=== PATIENT | male | born 1965 | race Caucasian/White ===

== ENCOUNTER 2018-05-30 04:12 | Emergency (ER) | payer MEDICAID ==
--- NOTE | 2018-05-30 04:42 | EDM.PDOC ---
ED HPI GENERAL MEDICAL PROBLEM - General Chief Complaint: Back Pain or Injury Stated Complaint: BACK PAIN Time Seen by Provider: 05/30/18 04:34 - History of Present Illness INITIAL COMMENTS - FREE TEXT/NARRATIVE: HISTORY AND PHYSICAL: History of present illness: Patient's 53-year-old white male presents with a history of chronic back pain. He is followed by primary care states he scheduled for MRI. He denies numbness weakness incontinence or retention bowel or bladder Review of systems: As per history of present illness and below otherwise all systems reviewed and negative. Past medical history: As per history of present illness and as reviewed below otherwise noncontributory. Surgical history: As per history of present illness and as reviewed below otherwise noncontributory. Social history: No reported history of drug or alcohol abuse. Family history: As per history of present illness and as reviewed below otherwise noncontributory. Physical exam: HEENT: Atraumatic, normocephalic, pupils reactive, negative for conjunctival pallor or scleral icterus, mucous membranes moist, throat clear, neck supple, nontender, trachea midline. Lungs: Clear to auscultation, breath sounds equal bilaterally, chest nontender. Heart: S1S2, regular, negative for clicks, rubs, or JVD. Abdomen: Soft, nondistended, nontender. Negative for masses or hepatosplenomegaly. Negative for costovertebral tenderness. Pelvis: Stable nontender. Genitourinary: Deferred. Rectal: Deferred. Extremities: Atraumatic, negative for cords or calf pain. Neurovascular unremarkable. Neuro: Awake, alert, oriented. Cranial nerves II through XII unremarkable. Cerebellum unremarkable. Motor and sensory unremarkable throughout. Exam nonfocal. Back: Patient is paravertebral tenderness at the lumbar spine no vertebral body or point tenderness Diagnostics: Patient declines any diagnostics other than UA Therapeutics: Tramadol 50 mg by mouth Impression: #1 chronic back pain Definitive disposition and diagnosis as appropriate pending reevaluation and review of above. Upper Back Pain Score (Numeric/FACES): 10 - Related Data Allergies Allergy/AdvReac Type Severity Reaction Status Date / Time No Known Allergies Allergy Verified 03/07/18 14:38 Home Meds: Home Meds Ibuprofen 1 tab ASDIRECTED PRN 05/30/18 [History] Lisinopril/Hydrochlorothiazide [Lisinopril-Hctz 20-25 mg Tab] 1 tab DAILY [History] Phentermine HCl 37.5 mg PO DAILY 05/30/18 [History] Tamsulosin HCl [Flomax] 0.4 mg PO DAILY 05/30/18 [History] Past Medical History HEENT History: Reports: None Cardiovascular History: Reports: Hypertension Respiratory History: Reports: None Gastrointestinal History: Reports: None Genitourinary History: Reports: Renal Calculus Musculoskeletal History: Reports: Back Pain, Chronic Other Musculoskeletal History: lumbar spine fracture Neurological History: Reports: None Psychiatric History: Reports: None Endocrine/Metabolic History: Reports: None Hematologic History: Reports: None Immunologic History: Reports: None Oncologic (Cancer) History: Reports: None Dermatologic History: Reports: None - Infectious Disease History Infectious Disease History: Reports: Chicken Pox - Past Surgical History Head Surgeries/Procedures: Reports: None HEENT Surgical History: Reports: Myringotomy w Tube(s) Cardiovascular Surgical History: Reports: None Respiratory Surgical History: Reports: None GI Surgical History: Reports: Hernia, Abdominal Male Surgical History: Reports: None Endocrine Surgical History: Reports: None Neurological Surgical History: Reports: None Musculoskeletal Surgical History: Reports: None Oncologic Surgical History: Reports: None Dermatological Surgical History: Reports: None Social & Family History - Family History Family Medical History: Noncontributory - Tobacco Use Smoking Status *Q: Never Smoker - Caffeine Use Caffeine Use: Reports: Energy Drinks - Recreational Drug Use Recreational Drug Use: No ED ROS GENERAL - Review of Systems Review Of Systems: ROS reveals no pertinent complaints other than HPI. ED EXAM, GENERAL - Physical Exam Exam: See Below (See dictation) Course - Vital Signs Last Recorded V/S: Last Vital Signs Temp 35.6 C 05/30/18 04:25 Pulse 116 H 05/30/18 04:25 Resp 20 05/30/18 04:25 BP 150/101 H 05/30/18 04:25 Pulse Ox 97 05/30/18 04:25 - Orders/Labs/Meds Orders: Active Orders 24 hr Category Date Time Status UA RFX RIN AND CULT IF INDIC [URIN] Stat Lab 05/30/18 04:33 Ordered Departure - Departure Time of Disposition: 04:41 Disposition: Home, Self-Care 01 Condition: Good Clinical Impression: Chronic back pain - Discharge Information Referrals: Isha Moody DO [Primary Care Provider] - Additional Instructions: The following information is given to patients seen in the emergency department who are being discharged to home. This information is to outline your options for follow-up care. We provide all patients seen in our emergency department with a follow-up referral. The need for follow-up, as well as the timing and circumstances, are variable depending upon the specifics of your emergency department visit. If you don't have a primary care physician on staff, we will provide you with a referral. We always advise you to contact your personal physician following an emergency department visit to inform them of the circumstance of the visit and for follow-up with them and/or the need for any referrals to a consulting specialist. The emergency department will also refer you to a specialist when appropriate. This referral assures that you have the opportunity for followup care with a specialist. All of these measure are taken in an effort to provide you with optimal care, which includes your followup. Under all circumstances we always encourage you to contact your private physician who remains a resource for coordinating your care. When calling for followup care, please make the office aware that this follow-up is from your recent emergency room visit. If for any reason you are refused follow-up, please contact the [facility] emergency department at and asked to speak to the emergency department charge nurse. Medrol tramadol as prescribed follow primary medical doctor keep scheduled appointments as discussed return as needed as discussed - My Orders Last 24 Hours: My Active Orders 05/30/18 04:33 UA RFX RIN AND CULT IF INDIC [URIN] Stat - Assessment/Plan Last 24 Hours: My Active Orders 05/30/18 04:33 UA RFX RIN AND CULT IF INDIC [URIN] Stat
[2018-05-30] MEDS ORDERED: traMADol 50 MG Tab PO ONE (04:44)
== END 2018-05-30 05:11 | disposition home or self-care (01) ==
LOC: MW.ED 04:12
DX: M54.9 Dorsalgia, unspecified (principal); G89.29 Other chronic pain; I10 Essential (primary) hypertension; Z79.899 Other long term (current) drug therapy
CPT/HCPCS: 81003; 99283; A9270

== ENCOUNTER 2018-08-25 18:03 | Emergency (ER) | payer BC, MEDICAID, OTHER ==
[2018-08-25] MEDS ORDERED: Sodium Chloride 0.9% 1,000 ML IV ONE (18:30)
[2018-08-25] MEDS ORDERED: Ondansetron 4 MG/2 ML SDV IVPUSH ONE (18:30)
--- NOTE | 2018-08-25 18:33 | EDM.PDOC ---
ED HPI GENERAL MEDICAL PROBLEM - General Chief Complaint: Genitourinary Problem Stated Complaint: POSSIBLE KIDNEY STONES Time Seen by Provider: 08/25/18 18:07 Source of Information: Reports: Patient History Limitations: Reports: No Limitations - History of Present Illness INITIAL COMMENTS - FREE TEXT/NARRATIVE: HISTORY AND PHYSICAL: History of present illness: Patient is a 53-year-old male presents to the ED today with concern of right flank pain x 2 days. Patient states he has a history of kidney stones which had the symptoms sort of pain that he describes today. Patient states the pain is worse when he tries to move and better when he sits still. Patient denies any other symptoms. Patient denies any other health history. Patient denies fever, chills, chest pain, shortness of breath, or cough. Denies headache, neck stiff ness, change in vision, syncope, or near syncope. Denies nausea, vomiting, abdominal pain, diarrhea, constipation, or dysuria. Has not noted any blood in urine or stool. Patient has been eating and drinking appropriately. Review of systems: As per history of present illness and below otherwise all systems reviewed and negative. Past medical history: As per history of present illness and as reviewed below otherwise noncontributory. Surgical history: As per history of present illness and as reviewed below otherwise noncontributory. Social history: See social history for further information Family history: As per history of present illness and as reviewed below otherwise noncontributory. Physical exam: General: Patient is alert, oriented, and in no acute distress. Patient sitting comfortably on exam table. HEENT: Atraumatic, normocephalic, pupils equal and reactive bilaterally, negative for conjunctival pallor or scleral icterus, mucous membranes moist, TMs normal bilaterally, throat clear, neck supple, nontender, trachea midline. No drooling or trismus noted. No meningeal signs. No hot potato voice noted. Lungs: Clear to auscultation, breath sounds equal bilaterally, chest nontender. Heart: S1S2, regular rate and rhythm without overt murmur Abdomen: Obese, Soft, nondistended, nontender. Negative for masses or hepatosplenomegaly. Positive for costovertebral tenderness of the right. Pelvis: Stable nontender. Genitourinary: Deferred. Rectal: Deferred. Skin: Intact, warm, dry. No lesions or rashes noted. Extremities: Atraumatic, negative for cords or calf pain. Neurovascular unremarkable. Neuro: Awake, alert, oriented. Cranial nerves II through XII unremarkable. Cerebellum unremarkable. Motor and sensory unremarkable throughout. Exam nonfocal. Notes: Dr. Blackwell verbally involved in patient care. Dr. Lara, urologist warehouse person, consulted on patient and will see him tomorrow in his office at 1:15pm. Voices understanding and is agreeable to plan of care. Denies any further questions or concerns at this time. Diagnostics: CBC, CMP, UA, EKG, lipase, abdominal pelvic CT Therapeutics: Saline, zofran, Dilauded Prescription: Flomax, [place] #30, Zofran Impression: Distal right ureterolithiasis Plan: 1. Dr. Lara, the urologist, will see you in his office tomorrow at 1:15 PM. Call his office in the morning to read verify this appointment. His number is above provided for you. 2. Take medication as prescribed. You can also alternate ibuprofen and Tylenol as directed for pain and discomfort. 3. Follow-up with the urologist as discussed. Return to the ED as needed and as discussed. Definitive disposition and diagnosis as appropriate pending reevaluation and review of above. right flank Pain Score (Numeric/FACES): 7 - Related Data Allergies Allergy/AdvReac Type Severity Reaction Status Date / Time No Known Allergies Allergy Verified 03/07/18 14:38 Home Meds: Home Meds Ibuprofen 1 tab ASDIRECTED PRN 05/30/18 [History] Lisinopril/Hydrochlorothiazide [Lisinopril-Hctz 20-25 mg Tab] 1 tab DAILY [History] Phentermine HCl 37.5 mg PO DAILY 05/30/18 [History] Tamsulosin HCl [Flomax] 0.4 mg PO DAILY 05/30/18 [History] Past Medical History HEENT History: Reports: None Cardiovascular History: Reports: Hypertension Respiratory History: Reports: None Gastrointestinal History: Reports: None Genitourinary History: Reports: Renal Calculus Musculoskeletal History: Reports: Back Pain, Chronic Other Musculoskeletal History: lumbar spine fracture Neurological History: Reports: None Psychiatric History: Reports: None Endocrine/Metabolic History: Reports: None Hematologic History: Reports: None Immunologic History: Reports: None Oncologic (Cancer) History: Reports: None Dermatologic History: Reports: None - Infectious Disease History Infectious Disease History: Reports: None - Past Surgical History Head Surgeries/Procedures: Reports: None HEENT Surgical History: Reports: Myringotomy w Tube(s) Cardiovascular Surgical History: Reports: None Respiratory Surgical History: Reports: None GI Surgical History: Reports: Hernia, Abdominal Male Surgical History: Reports: None Endocrine Surgical History: Reports: None Neurological Surgical History: Reports: None Musculoskeletal Surgical History: Reports: None Oncologic Surgical History: Reports: None Dermatological Surgical History: Reports: None Social & Family History - Family History Family Medical History: Noncontributory - Tobacco Use Smoking Status *Q: Never Smoker - Caffeine Use Caffeine Use: Reports: Energy Drinks - Recreational Drug Use Recreational Drug Use: No ED ROS GENERAL - Review of Systems Review Of Systems: ROS reveals no pertinent complaints other than HPI. ED EXAM, RENAL/ - Physical Exam Exam: See Below (See dictation) Course - Vital Signs Last Recorded V/S: Last Vital Signs Temp 36.7 C 08/25/18 18:10 Pulse 92 08/25/18 18:10 Resp 18 08/25/18 18:10 BP 177/88 H 08/25/18 18:10 Pulse Ox 99 08/25/18 18:10 - Orders/Labs/Meds Orders: Active Orders 24 hr Category Date Time Status EKG Documentation Completion [RC] STAT Care 08/25/18 18:31 Active HYDROmorphone [Dilaudid] Med 08/25/18 20:02 Once 1 mg IVPUSH ONETIME ONE Medication Orders Hydromorphone HCl (Dilaudid) 1 mg IVPUSH ONETIME ONE Stop: 08/25/18 20:03 Labs: Laboratory Tests 08/25/18 08/25/18 08/25/18 Range/Units 18:45 18:50 18:50 WBC 6.55 (4.0-11.0) K/uL RBC 4.34 L (4.50-5.90) M/uL Hgb 14.0 (13.0-17.0) g/dL Hct 42.0 (38.0-50.0) % MCV 96.8 (80.0-98.0) fL MCH 32.3 H (27.0-32.0) pg MCHC 33.3 (31.0-37.0) g/dL RDW Std Deviation 45.6 (28.0-62.0) fl RDW Coeff of Amandeep 13 (11.0-15.0) % Plt Count 230 (150-400) K/uL MPV 9.20 (7.40-12.00) fL Neut % (Auto) 58.7 (48.0-80.0) % Lymph % (Auto) 28.7 (16.0-40.0) % Bill[place] % (Auto) 8.9 (0.0-15.0) % Eos % (Auto) 3.2 (0.0-7.0) % Baso % (Auto) 0.5 (0.0-1.5) % Neut # (Auto) 3.9 (1.4-5.7) K/uL Lymph # (Auto) 1.9 (0.6-2.4) K/uL Bill[place] # (Auto) 0.6 (0.0-0.8) K/uL Eos # (Auto) 0.2 (0.0-0.7) K/uL Baso # (Auto) 0.0 (0.0-0.1) K/uL Nucleated RBC % 0.0 /100WBC Nucleated RBCs # 0 K/uL Sodium 144 (136-148) mmol/L Potassium 4.1 (3.5-5.1) mmol/L Chloride 107 (98-107) mmol/L Carbon Dioxide 27.4 (21.0-32.0) mmol/L BUN 25 H (7.0-18.0) mg/dL Creatinine 1.1 (0.8-1.3) mg/dL Est Cr Clr Drug Dosing 88.78 mL/min Estimated GFR (MDRD) > 60.0 ml/min Glucose 111 H (74-106) mg/dL Calcium 8.7 (8.5-10.1) mg/dL Total Bilirubin 0.3 (0.2-1.0) mg/dL AST 15 (15-37) IU/L ALT 36 (14-63) IU/L Alkaline Phosphatase 70 (46-116) U/L Total Protein 7.3 (6.4-8.2) g/dL Albumin 4.0 (3.4-5.0) g/dL Globulin 3.3 (2.6-4.0) g/dL Albumin/Globulin Ratio 1.2 (0.9-1.6) Lipase 122 (73-393) U/L Urine Color YELLOW Urine Appearance CLEAR Urine pH 7.0 (5.0-8.0) Ur Specific Maynard 1.020 (1.001-1.035) Urine Protein NEGATIVE (NEGATIVE) mg/dL Urine Glucose (UA) NEGATIVE (NEGATIVE) mg/dL Urine Ketones NEGATIVE (NEGATIVE) mg/dL Urine Occult Blood NEGATIVE (NEGATIVE) Urine Nitrite NEGATIVE (NEGATIVE) Urine Bilirubin NEGATIVE (NEGATIVE) Urine Urobilinogen 0.2 (<2.0) EU/dL Ur Leukocyte Esterase NEGATIVE (NEGATIVE) Meds: Medications Generic Name Dose Route Start Last Admin Trade Name Freq PRN Reason Stop Dose Admin Hydromorphone HCl 1 mg 08/25/18 20:02 Dilaudid IVPUSH 08/25/18 20:03 ONETIME ONE Discontinued Medications Generic Name Dose Route Start Last Admin Trade Name Freq PRN Reason Stop Dose Admin Sodium Chloride 1,000 mls @ 999 mls/hr 08/25/18 18:30 08/25/18 18:55 Normal Saline IV 08/25/18 19:30 999 mls/hr BOLUS ONE Administration Ondansetron HCl 4 mg 08/25/18 18:30 08/25/18 18:56 Zofran IVPUSH 08/25/18 18:31 4 mg ONETIME ONE Administration Departure - Departure Time of Disposition: 20:14 Disposition: Home, Self-Care 01 Clinical Impression: Ureterolithiasis - Discharge Information Referrals: PCP,None [Primary Care Provider] - Forms: ED Department Discharge Additional Instructions: The following information is given to patients seen in the emergency department who are being discharged to home. This information is to outline your options for follow-up care. We provide all patients seen in our emergency department with a follow-up referral. The need for follow-up, as well as the timing and circumstances, are variable depending upon the specifics of your emergency department visit. If you don't have a primary care physician on staff, we will provide you with a referral. We always advise you to contact your personal physician following an emergency department visit to inform them of the circumstance of the visit and for follow-up with them and/or the need for any referrals to a consulting specialist. The emergency department will also refer you to a specialist when appropriate. This referral assures that you have the opportunity for follow-up care with a specialist. All of these measure are taken in an effort to provide you with optimal care, which includes your follow-up. Under all circumstances we always encourage you to contact your private physician who remains a resource for coordinating your care. When calling for follow-up care, please make the office aware that this follow-up is from your recent emergency room visit. If for any reason you are refused follow-up, please contact the [facility] Emergency Department at and asked to speak to the emergency department charge nurse. [facility] [address] [place] [id number] [facility] [address] [place] [id number] [facility] [place] - Urology [address] [place] [id number] Lara, the urologist, will see you in his office tomorrow at 1:15 PM. Call his office in the morning to read verify this appointment. His number is above provided for you. 2. Take medication as prescribed. You can also alternate ibuprofen and Tylenol as directed for pain and discomfort. 3. Follow-up with the urologist as discussed. Return to the ED as needed and as discussed. - My Orders Last 24 Hours: My Active Orders 08/25/18 18:31 EKG Documentation Completion [RC] STAT 08/25/18 20:02 HYDROmorphone [Dilaudid] 1 mg IVPUSH ONETIME ONE - Assessment/Plan Last 24 Hours: My Active Orders 08/25/18 18:31 EKG Documentation Completion [RC] STAT 08/25/18 20:02 HYDROmorphone [Dilaudid] 1 mg IVPUSH ONETIME ONE
[2018-08-25 19:29] LABS: CHLORIDE,CL 107 mmol/L (98-107); SODIUM,NA 144 mmol/L (136-148)
--- NOTE | 2018-08-25 19:54 | CT ---
HISTORY: Right flank pain Noncontrast CT abdomen and pelvis coronal sagittal reformatted images obtained. COMPARISON: CT abdomen and pelvis 03/04/2018. Findings: Heart size is normal. Minimal basilar atelectasis. Spleen pancreas liver gallbladder is unremarkable. Normal caliber abdominal aorta. Normal appendix. Normal caliber abdominal aorta. Normal appendix. There is a right distal ureteral stone measuring 8 mm series 201 image 128. There is no significant ureteral dilatation or hydronephrosis There is no renal calculi. Low-attenuation lesions in the left kidney likely reflect cysts. Subcentimeter left upper pole dense renal lesion too small to characterize. Diverticulosis. The bowel appears unremarkable. Fat containing umbilical hernia. Fat containing right inguinal hernia. Prostate gland is within normal limits. No suspicious bony lesions are seen. IMPRESSION: 1. 8 millimeter right distal ureter stone without significant hydronephrosis or ureteral dilatation. No additional renal calculi. 2. Normal appendix. 3. Diverticulosis. Please note that all CT scans at this facility use dose modulation, iterative reconstruction, and/or weight-based dosing when appropriate to reduce radiation dose to as low as reasonably achievable. Dictated by Marianne Honeycutt MD @ Aug 25 2018 7:27PM Signed by Dr. Marianne Honeycutt @ Aug 25 2018 7:51PM
[2018-08-25] MEDS ORDERED: HYDROmorphone 2 MG/ML Syringe IVPUSH ONE (20:02)
== END 2018-08-25 21:21 | disposition home or self-care (01) ==
LOC: MW.ED 18:03
DX: N20.1 Calculus of ureter (principal); I10 Essential (primary) hypertension; Z79.899 Other long term (current) drug therapy
CPT/HCPCS: 74176; 80053; 81003; 83690; 85025; 93005; 96361; 96374; 96375; 99284; J1170; J2405; J7040

== ENCOUNTER 2018-08-27 06:21 | Day surgery (SDC) | payer BC, OTHER ==
[~2018-08-27 06:21] MED LIST: Lactated Ringers 1,000 ML IV SCH; Sodium Chloride 0.9% 10 ML SDV IV PRN; Sodium Chloride 0.9% 10 ML Syringe FLUSH PRN; Sodium Chloride 0.9% 2.5 ML Syringe FLUSH PRN; ceFAZolin 2 GM in Premix Bag 1 BAG IV ONE
[2018-08-27] MEDS ORDERED: Propofol 200 MG/20 ML SDV ONE (07:23)
[2018-08-27] MEDS ORDERED: Midazolam 1 MG/ML 2 ML SDV ONE (07:23)
[2018-08-27] MEDS ORDERED: Ondansetron 4 MG/2 ML SDV ONE (07:24)
[2018-08-27] MEDS ORDERED: fentaNYL 250 MCG/5 ML SDV ONE (07:24)
--- NOTE | 2018-08-27 07:33 | PCM.PREANE ---
Preanesthetic Assessment - Anesthesia/Transfusion/Family Hx Anesthesia History: Prior Anesthesia Without Reaction Family History of Anesthesia Reaction: No Transfusion History: No Prior Transfusion(s) - Review of Systems General: No Symptoms Pulmonary: No Symptoms Cardiovascular: No Symptoms Gastrointestinal: Abdominal Pain Neurological: No Symptoms Other: Reports: None - Physical Assessment NPO Status Date: 08/26/18 O2 Sat by Pulse Oximetry: 97 Respiratory Rate: 16 Vital Signs: Last Vital Signs Temp 97.7 F 08/27/18 07:04 Pulse 74 08/27/18 07:04 Resp 16 08/27/18 07:04 BP 158/90 H 08/27/18 07:04 Pulse Ox 97 08/27/18 07:04 Height: 6 ft 1 in Weight: 149.232 kg ASA Class: 2 Mental Status: Alert & Oriented x3 Dentition: Reports: Dentures (upper) ROM/Head Extension: Full Lungs: Clear to Auscultation, Normal Respiratory Effort Cardiovascular: Regular Rate, Regular Rhythm - Allergies Allergies/Adverse Reactions: Allergies Allergy/AdvReac Type Severity Reaction Status Date / Time No Known Allergies Allergy Verified 08/26/18 15:37 - Acknowledgements Anesthesia Type Planned: General Anesthesia Pt an Appropriate Candidate for the Planned Anesthesia: Yes Alternatives and Risks of Anesthesia Discussed w Pt/Guardian: Yes Pt/Guardian Understands and Agrees with Anesthesia Plan: Yes Additional Comments: anes prob list: HTN, denies other PMH, has had hernia surg x2 and uln nerve transposition without problem. denies snoring/KRYSTAL PLAN: GET PreAnesthesia Questionnaire HEENT History: Reports: Other (See Below) Other HEENT History: uses reading glasses, has upper partial removable denture Cardiovascular History: Reports: Hypertension Other Cardiovascular History: has been off Lisinopril for 3 weeks Respiratory History: Reports: None Gastrointestinal History: Reports: None Genitourinary History: Reports: Renal Calculus Musculoskeletal History: Reports: Back Pain, Chronic, Fracture Other Musculoskeletal History: hx of fx back Neurological History: Reports: Other (See Below) Other Neuro History: hx of motion sickness Psychiatric History: Reports: PTSD Other Psychiatric History: has taken Adderal in the past Endocrine/Metabolic History: Reports: Obesity/BMI 30+ Hematologic History: Reports: None Immunologic History: Reports: None Oncologic (Cancer) History: Reports: None Dermatologic History: Reports: None - Infectious Disease History Infectious Disease History: Reports: None - Past Surgical History Head Surgeries/Procedures: Reports: None HEENT Surgical History: Reports: Myringotomy w Tube(s) Cardiovascular Surgical History: Reports: None Respiratory Surgical History: Reports: None GI Surgical History: Reports: Hernia, Inguinal Male Surgical History: Reports: None Endocrine Surgical History: Reports: None Neurological Surgical History: Reports: None Musculoskeletal Surgical History: Reports: Other (See Below) Other Musculoskeletal Surgeries/Procedures:: transposition of left ulnar nerve Oncologic Surgical History: Reports: None Dermatological Surgical History: Reports: None - SUBSTANCE USE Smoking Status *Q: Former Smoker Tobacco Use Within Last Twelve Months: No Recreational Drug Use History: No - HOME MEDS Home Medications: Home Meds Ibuprofen 1 tab PO ASDIRECTED PRN 05/30/18 [History] Lisinopril/Hydrochlorothiazide [Lisinopril-Hctz 20-25 mg Tab] 1 tab PO QAM 05/30 [History] - CURRENT (IN HOUSE) MEDS Current Meds: Current Medications Lactated Ringer's (Ringers, Lactated) 1,000 mls @ 100 mls/hr IV ASDIRECTED MILADIS Last Admin: 08/27/18 07:23 Dose: 100 mls/hr Sodium Chloride (Saline Flush) 10 ml FLUSH ASDIRECTED PRN PRN Reason: Keep Vein Open Sodium Chloride (Saline Flush) 2.5 ml FLUSH ASDIRECTED PRN PRN Reason: Keep Vein Open Sodium Chloride (Normal Saline) 10 ml IV ASDIRECTED PRN PRN Reason: IV Use Discontinued Medications Fentanyl (Sublimaze) Confirm Administered Dose 250 mcg .ROUTE .STK-MED ONE Stop: 08/27/18 07:25 Cefazolin Sodium/Dextrose 2 gm (/ Premix) 50 mls @ 100 mls/hr IV ONCALL ONE Stop: 08/27/18 00:30 Lidocaine HCl (Xylocaine-Mpf 1%) Confirm Administered Dose 5 mls @ as directed .ROUTE .STK-MED ONE Stop: 08/27/18 07:25 Midazolam HCl (Versed 1 Mg/Ml) Confirm Administered Dose 2 mg .ROUTE .STK-MED ONE Stop: 08/27/18 07:24 Ondansetron HCl (Zofran) Confirm Administered Dose 4 mg .ROUTE .STK-MED ONE Stop: 08/27/18 07:25 Propofol (Diprivan 20 Ml) Confirm Administered Dose 200 mg .ROUTE .[facility] ONE Stop: 08/27/18 07:24
[2018-08-27] MEDS ORDERED: Rocuronium 100 MG/10 ML MDV ONE (07:45)
[2018-08-27] MEDS ORDERED: Iopamidol 200-M 10 ML vial ITHECAL ONE (07:47)
[2018-08-27] MEDS ORDERED: Lidocaine 2% Jelly 30 ML Tube ONE (07:47)
[2018-08-27] MEDS ORDERED: ceFAZolin/Dextrose,Iso-Osmotic 2 GM/50 ML Duplex Bag IV ONE (07:56)
[2018-08-27] MEDS ORDERED: Sugammadex Sodium 200 MG/2 ML VIAL ONE (08:25)
[2018-08-27] MEDS ORDERED: Dexamethasone 4 MG/ML 5 ML MDV ONE (08:38)
[2018-08-27] MEDS ORDERED: Ibuprofen 800 MG Tab PO PRN (09:24)
--- NOTE | 2018-08-27 10:04 | PCM.POSTAN ---
POST ANESTHESIA ASSESSMENT - MENTAL STATUS Mental Status: Alert, Oriented - RESPIRATORY Respiratory Status: Respiratory Rate WNL, Airway Patent, O2 Saturation Stable - CARDIOVASCULAR CV Status: Pulse Rate WNL, Blood Pressure Stable - GASTROINTESTINAL GI Status: No Symptoms - POST OP HYDRATION Hydration Status: Adequate & Stable
--- NOTE | 2018-08-27 10:04 | PCM48HPAN ---
Post Anesthesia Note - EVALUATION WITHIN 48HRS OF ANESTHETIC Vital Signs in Normal Range: Yes Patient Participated in Evaluation: Yes Respiratory Function Stable: Yes Airway Patent: Yes Cardiovascular Function Stable: Yes Hydration Status Stable: Yes Pain Control Satisfactory: Yes Nausea and Vomiting Control Satisfactory: Yes Mental Status Recovered: Yes Resp Rate: 16
--- NOTE | 2018-08-27 10:52 | OR ---
SURGEON: Emily Dial M.D. DATE OF PROCEDURE: 08/27/2018 PREOPERATIVE DIAGNOSIS: Right lower ureteral stone. POSTOPERATIVE DIAGNOSIS: Right lower ureteral stone. OPERATION: Right ureteroscopy, laser lithotripsy, removal of stone fragments. DESCRIPTION OF PROCEDURE: The patient was given general anesthesia. He was in dorsal lithotomy position, prepped and draped in sterile drapes. Cystourethroscopy was done that was normal. A guidewire was advanced in the right ureter alongside the stone, all the way up into the renal pelvis. The right lower ureter was then dilated using the UroMax II balloon dilator to approximately 15-[place]. The [place] rigid ureteroscope was advanced in the right lower ureter. The stone was visualized. Laser was used to break it up and dust part of it. The rest was removed using the Zero tip basket. With that done, the procedure was terminated. The bladder was emptied. The specimen was submitted and the patient is moved to recovery room in good condition. SEAN / JAVIER /[id number]
--- NOTE | 2018-08-27 16:13 | CR ---
EXAMINATION: Abdomen HISTORY: Surgical procedure COMPARISON: CT dated 08/25/2018 TECHNIQUE: 2 fluoroscopic images provided FINDINGS/IMPRESSION: Operative control films demonstrate selection of the right ureter with balloons insufflation near the ureterovesicular junction.
== END 2018-08-27 10:15 | disposition home or self-care (01) ==
LOC: MW.SDS 06:21
PROVIDERS: ATTEND Urology
DX: N20.1 Calculus of ureter (principal); I10 Essential (primary) hypertension; E66.9 Obesity, unspecified; G89.29 Other chronic pain; M54.9 Dorsalgia, unspecified; Z87.891 Personal history of nicotine dependence; Z79.899 Other long term (current) drug therapy; Z68.41 Body mass index [BMI] 40.0-44.9, adult
CPT/HCPCS: 52353; 76000; J0330; J0690; J1100; J2001; J2250; J2405; J2704; J3010; J3490; J7120; Q9966; 00918; 88300; C1769

== ENCOUNTER 2018-08-30 18:51 | Emergency (ER) | payer SELFPAY ==
[2018-08-30] MEDS ORDERED: Sodium Chloride 0.9% 1,000 ML IV ONE (19:00)
[2018-08-30] MEDS ORDERED: Ondansetron 4 MG/2 ML SDV IVPUSH ONE (19:00)
--- NOTE | 2018-08-30 19:02 | EDM.PDOC ---
ED HPI GENERAL MEDICAL PROBLEM - General Chief Complaint: Genitourinary Problem Stated Complaint: PT HAS STOMACH PAIN Time Seen by Provider: 08/30/18 19:01 Source of Information: Reports: Patient - History of Present Illness INITIAL COMMENTS - FREE TEXT/NARRATIVE: HISTORY AND PHYSICAL: History of present illness: [Patient presents with postprocedural pain he had same-day surgery with Dr. Das in file, he presents with flank pain 8 out of 10, he is out of his hydrocodone which was provided by Dr. 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 Past medical history: As per history of present illness and as reviewed below otherwise noncontributory. Surgical history: As per history of present illness and as reviewed below otherwise noncontributory. Social history: No reported history of drug or alcohol abuse. Family history: As per history of present illness and as reviewed below otherwise noncontributory. Physical exam: HEENT: Atraumatic, normocephalic, pupils reactive, negative for conjunctival pallor or scleral icterus, mucous membranes moist, throat clear, neck supple, nontender, trachea midline. Lungs: Clear to auscultation, breath sounds equal bilaterally, chest nontender. Heart: S1S2, regular, negative for clicks, rubs, or JVD. Abdomen: Soft, nondistended, nontender. Negative for masses or hepatosplenomegaly. Negative for costovertebral tenderness. Pelvis: Stable nontender. Genitourinary: Deferred. Rectal: Deferred. Extremities: Atraumatic, negative for cords or calf pain. Neurovascular unremarkable. Neuro: Awake, alert, oriented. Cranial nerves II through XII unremarkable. Cerebellum unremarkable. Motor and sensory unremarkable throughout. Exam nonfocal. Diagnostics: [CBC CMP UA CT abdomen pelvis with contrast was considered patient declines he prefers to follow with [facility] ] Therapeutics: [[place] [address] ] Impression: [Postprocedural pain Medical screening exam] Definitive disposition and diagnosis as appropriate pending reevaluation and review of above. Right Flank Pain Score (Numeric/FACES): 7 - Related Data Allergies Allergy/AdvReac Type Severity Reaction Status Date / Time No Known Allergies Allergy Verified 08/30/18 19:03 Home Meds: Home Meds Lisinopril/Hydrochlorothiazide [Lisinopril-Hctz 20-25 mg Tab] 1 tab PO QAM 05/30 [History] Hydrocodone/Acetaminophen [Hydrocodon-Acetaminophen 5-325] 1 tab PO Q6H PRN [History] Tamsulosin HCl [Flomax] 0.4 mg PO DAILY 08/30/18 [History] Past Medical History HEENT History: Reports: Other (See Below) Other HEENT History: uses reading glasses, has upper partial removable denture Cardiovascular History: Reports: Hypertension Other Cardiovascular History: has been off Lisinopril for 3 weeks Respiratory History: Reports: None Gastrointestinal History: Reports: None Genitourinary History: Reports: Renal Calculus Musculoskeletal History: Reports: Back Pain, Chronic, Fracture Other Musculoskeletal History: hx of fx back Neurological History: Reports: Other (See Below) Other Neuro History: hx of motion sickness Psychiatric History: Reports: PTSD Other Psychiatric History: has taken Adderal in the past Endocrine/Metabolic History: Reports: Obesity/BMI 30+ Hematologic History: Reports: None Immunologic History: Reports: None Oncologic (Cancer) History: Reports: None Dermatologic History: Reports: None - Infectious Disease History Infectious Disease History: Reports: None - Past Surgical History Head Surgeries/Procedures: Reports: None HEENT Surgical History: Reports: Myringotomy w Tube(s) Cardiovascular Surgical History: Reports: None Respiratory Surgical History: Reports: None GI Surgical History: Reports: Hernia, Inguinal Male Surgical History: Reports: None Endocrine Surgical History: Reports: None Neurological Surgical History: Reports: None Musculoskeletal Surgical History: Reports: Other (See Below) Other Musculoskeletal Surgeries/Procedures:: transposition of left ulnar nerve Oncologic Surgical History: Reports: None Dermatological Surgical History: Reports: None Social & Family History - Family History Family Medical History: Noncontributory - Caffeine Use Caffeine Use: Reports: Energy Drinks ED ROS GENERAL - Review of Systems Review Of Systems: See Below ED EXAM, GENERAL - Physical Exam Exam: See Below Course - Vital Signs Last Recorded V/S: Last Vital Signs Temp 97.7 F 06/28/19 19:05 Pulse 103 H 08/30/18 19:05 Resp 16 08/30/18 19:05 BP 129/78 08/30/18 19:05 Pulse Ox 98 08/30/18 19:05 - Orders/Labs/Meds Orders: Active Orders 24 hr Category Date Time Status COMPREHENSIVE METABOLIC PN,CMP [CHEM] Stat Lab 08/30/18 19:05 Results CPK [CREATINE KINASE,CK] [CHEM] Stat Lab 08/30/18 19:05 Results LIPASE [CHEM] Stat Lab 08/30/18 19:05 Results TROPONIN I [CHEM] Stat Lab 08/30/18 19:05 Results Labs: Laboratory Tests 08/30/18 08/30/18 08/30/18 Range/Units 19:05 19:05 19:05 WBC 11.08 H (4.0-11.0) K/uL RBC 4.88 (4.50-5.90) M/uL Hgb 15.6 (13.0-17.0) g/dL Hct 46.0 (38.0-50.0) % MCV 94.3 (80.0-98.0) fL MCH 32.0 (27.0-32.0) pg MCHC 33.9 (31.0-37.0) g/dL RDW Std Deviation 43.4 (28.0-62.0) fl RDW Coeff of Amandeep 13 (11.0-15.0) % Plt Count 299 (150-400) K/uL MPV 9.50 (7.40-12.00) fL Neut % (Auto) 69.7 (48.0-80.0) % Lymph % (Auto) 19.0 (16.0-40.0) % [place] % (Auto) 9.8 (0.0-15.0) % Eos % (Auto) 1.2 (0.0-7.0) % Baso % (Auto) 0.3 (0.0-1.5) % Neut # (Auto) 7.7 H (1.4-5.7) K/uL Lymph # (Auto) 2.1 (0.6-2.4) K/uL [place] # (Auto) 1.1 H (0.0-0.8) K/uL Eos # (Auto) 0.1 (0.0-0.7) K/uL Baso # (Auto) 0.0 (0.0-0.1) K/uL Nucleated RBC % 0.0 /100WBC Nucleated RBCs # 0 K/uL Sodium 140 (136-148) mmol/L Potassium 4.2 (3.5-5.1) mmol/L Chloride 103 (98-107) mmol/L Carbon Dioxide 26.5 (21.0-32.0) mmol/L BUN 32 H (7.0-18.0) mg/dL Creatinine 1.0 (0.8-1.3) mg/dL Est Cr Clr Drug Dosing TNP Estimated GFR (MDRD) > 60.0 ml/min Glucose 153 H (74-106) mg/dL Calcium 9.7 (8.5-10.1) mg/dL Total Bilirubin 0.3 (0.2-1.0) mg/dL ALT 44 (14-63) IU/L Alkaline Phosphatase 70 (46-116) U/L Creatine Kinase 96 (26-308) U/L Troponin I < 0.050 (0.000-0.056) ng/mL Total Protein 8.1 (6.4-8.2) g/dL Albumin 4.1 (3.4-5.0) g/dL Globulin 4.0 (2.6-4.0) g/dL Albumin/Globulin Ratio 1.0 (0.9-1.6) Lipase 75 (73-393) U/L Urine Color YELLOW Urine Appearance CLEAR Urine pH 6.0 (5.0-8.0) Ur Specific Joes 1.025 (1.001-1.035) Urine Protein NEGATIVE (NEGATIVE) mg/dL Urine Glucose (UA) NEGATIVE (NEGATIVE) mg/dL Urine Ketones NEGATIVE (NEGATIVE) mg/dL Urine Occult Blood LARGE H (NEGATIVE) Urine Nitrite NEGATIVE (NEGATIVE) Urine Bilirubin NEGATIVE (NEGATIVE) Urine Urobilinogen 0.2 (<2.0) EU/dL Ur Leukocyte Esterase NEGATIVE (NEGATIVE) Urine RBC 10-12 (0-2/HPF) Urine WBC 0-1 (0-5/HPF) Ur Epithelial Cells RARE (NONE-FEW) Urine Bacteria RARE (NEGATIVE) Meds: Medications Discontinued Medications Generic Name Dose Route Start Last Admin Trade Name Freq PRN Reason Stop Dose Admin Sodium Chloride 1,000 mls @ 999 mls/hr 08/30/18 19:00 08/30/18 19:16 Normal Saline IV 08/30/18 20:00 999 mls/hr STAT ONE Administration Morphine Sulfate 2 mg 08/30/18 19:15 08/30/18 19:21 Morphine IVPUSH 08/30/18 19:16 2 mg ONETIME ONE Administration Ondansetron HCl 8 mg 08/30/18 19:00 08/30/18 19:16 Zofran IVPUSH 08/30/18 19:01 8 mg ONETIME ONE Administration Departure - Departure Time of Disposition: 20:17 Disposition: Home, Self-Care 01 Condition: Good Clinical Impression: Postoperative pain, Encounter for medical screening examination - Discharge Information Forms: ED Department Discharge Additional Instructions: The following information is given to patients seen in the emergency department who are being discharged to home. This information is to outline your options for follow-up care. We provide all patients seen in our emergency department with a follow-up referral. The need for follow-up, as well as the timing and circumstances, are variable depending upon the specifics of your emergency department visit. If you don't have a primary care physician on staff, we will provide you with a referral. We always advise you to contact your personal physician following an emergency department visit to inform them of the circumstance of the visit and for follow-up with them and/or the need for any referrals to a consulting specialist. The emergency department will also refer you to a specialist when appropriate. This referral assures that you have the opportunity for follow-up care with a specialist. All of these measure are taken in an effort to provide you with optimal care, which includes your follow-up. Under all circumstances we always encourage you to contact your private physician who remains a resource for coordinating your care. When calling for follow-up care, please make the office aware that this follow-up is from your recent emergency room visit. If for any reason you are refused follow-up, please contact the [facility] emergency department at and asked to speak to the emergency department charge nurse. - My Orders Last 24 Hours: My Active Orders 08/30/18 19:05 COMPREHENSIVE METABOLIC PN,CMP [CHEM] Stat CPK [CREATINE KINASE,CK] [CHEM] Stat LIPASE [CHEM] Stat TROPONIN I [CHEM] Stat - Assessment/Plan Last 24 Hours: My Active Orders 08/30/18 19:05 COMPREHENSIVE METABOLIC PN,CMP [CHEM] Stat CPK [CREATINE KINASE,CK] [CHEM] Stat LIPASE [CHEM] Stat TROPONIN I [CHEM] Stat
[2018-08-30] MEDS ORDERED: Morphine 2 MG/ML Syringe IVPUSH ONE (19:15)
[2018-08-30 19:41] LABS: CHLORIDE,CL 103 mmol/L (98-107); SODIUM,NA 140 mmol/L (136-148)
== END 2018-08-30 20:39 | disposition home or self-care (01) ==
LOC: MW.ED 18:51
DX: G89.18 Other acute postprocedural pain (principal); R10.9 Unspecified abdominal pain; I10 Essential (primary) hypertension; Z79.899 Other long term (current) drug therapy; Z98.890 Other specified postprocedural states
CPT/HCPCS: 36415; 80053; 81001; 82550; 83690; 84484; 85025; 96361; 96374; 96375; 99284; J2270; J2405; J7040; 99282

== ENCOUNTER 2018-10-14 12:01 | Emergency (ER) | payer OTHER ==
[2018-10-14] MEDS ORDERED: Sodium Chloride 0.9% 10 ML Syringe FLUSH PRN (12:03)
[2018-10-14] MEDS ORDERED: Sodium Chloride 0.9% 2.5 ML Syringe FLUSH PRN (12:03)
[2018-10-14] MEDS ORDERED: Sodium Chloride 0.9% 1,000 ML IV ONE (12:03)
--- NOTE | 2018-10-14 12:04 | EDM.PDOC ---
ED HPI GENERAL MEDICAL PROBLEM - General Chief Complaint: Respiratory Problem Stated Complaint: SHORTNESS OF BREATH Time Seen by Provider: 10/14/18 12:03 Source of Information: Reports: Patient History Limitations: Reports: No Limitations - History of Present Illness INITIAL COMMENTS - FREE TEXT/NARRATIVE: HISTORY AND PHYSICAL: History of present illness: Patient is a 53-year-old male presents to ED with complaint of shortness of breath 4 days. He reports that her shortness of breath with very minimal activity. He states that he has been having some heart racing occasionally. He denies chest pain, cough, fevers, chills, diaphoresis, headache. Patient had a lithotripsy a couple of weeks ago with Dr. Dial and states he does have slight stomach pain but denies any nausea, vomiting, diarrhea. Patient is a former smoker denies history of COPD or asthma. Review of systems: As per history of present illness and below otherwise all systems reviewed and negative. Past medical history: As per history of present illness and as reviewed below otherwise noncontributory. Surgical history: As per history of present illness and as reviewed below otherwise noncontributory. Social history: No reported history of drug or alcohol abuse. Family history: As per history of present illness and as reviewed below otherwise noncontributory. Physical exam: General: Patient sitting comfortably in no acute distress and nontoxic appearing HEENT: Atraumatic, normocephalic, pupils reactive, negative for conjunctival pallor or scleral icterus, mucous membranes moist, throat clear, neck supple, nontender, trachea midline. No meningeal signs. Lungs: Breath sounds diminished with some wheezing noted throughout all lung mclean chest nontender. Heart: S1S2, regular, negative for clicks, rubs, or overt murmur. Abdomen: Soft, nondistended, nontender. Negative for masses or hepatosplenomegaly. Negative for costovertebral tenderness. No rigidity, rebound , guarding. Pelvis: Stable nontender. Genitourinary: Deferred. Rectal: Deferred. Extremities: Atraumatic, negative for cords or calf pain. Neurovascular unremarkable. Neuro: Awake, alert, oriented. Cranial nerves II through XII unremarkable. Cerebellum unremarkable. Motor and sensory unremarkable throughout. Exam nonfocal. Notes: Diagnostics: CBC, CMP, troponin, BNP, d-dimer, EKG, CXR Therapeutics: DuoNeb Solumedrol 125mg IM Prescriptions: Ventolin inhaler Medrol dosepak Impression: Bronchitis Plan: Take medications as instructed Follow up with primary care provider Return to ED as needed as discussed Definitive disposition and diagnosis as appropriate pending reevaluation and review of above. Lower Back Pain Score (Numeric/FACES): 3 - Related Data Allergies Allergy/AdvReac Type Severity Reaction Status Date / Time buprenorphine [From Suboxone] Allergy Swelling Verified 10/14/18 12:12 naloxone [From Suboxone] Allergy Swelling Verified 10/14/18 12:12 Home Meds: Home Meds Lisinopril/Hydrochlorothiazide [Lisinopril-Hctz 20-25 mg Tab] 1 tab PO QAM 05/30 [History] Hydrocodone/Acetaminophen [Hydrocodon-Acetaminophen 5-325] 1 tab PO Q6H PRN [History] Albuterol [Ventolin HFA] 1 puff INH Q4H #1 inhaler 10/14/18 [Rx] Testosterone Enanthate [Xyosted] mg INJECT WEEKLY 10/14/18 [History] methylPREDNISolone [Medrol] 4 mg PO ASDIRECTED #1 tab.ds.pk 10/14/18 [Rx] Past Medical History HEENT History: Reports: Other (See Below) Other HEENT History: uses reading glasses, has upper partial removable denture Cardiovascular History: Reports: Hypertension Other Cardiovascular History: has been off Lisinopril for 3 weeks Respiratory History: Reports: None Gastrointestinal History: Reports: None Genitourinary History: Reports: Renal Calculus Musculoskeletal History: Reports: Back Pain, Chronic, Fracture Other Musculoskeletal History: hx of fx back Neurological History: Reports: Other (See Below) Other Neuro History: hx of motion sickness Psychiatric History: Reports: PTSD Other Psychiatric History: has taken Adderal in the past Endocrine/Metabolic History: Reports: Obesity/BMI 30+ Hematologic History: Reports: None Immunologic History: Reports: None Oncologic (Cancer) History: Reports: None Dermatologic History: Reports: None - Infectious Disease History Infectious Disease History: Reports: None - Past Surgical History Head Surgeries/Procedures: Reports: None HEENT Surgical History: Reports: Myringotomy w Tube(s) Cardiovascular Surgical History: Reports: None Respiratory Surgical History: Reports: None GI Surgical History: Reports: Hernia, Inguinal Male Surgical History: Reports: None Endocrine Surgical History: Reports: None Neurological Surgical History: Reports: None Musculoskeletal Surgical History: Reports: Other (See Below) Other Musculoskeletal Surgeries/Procedures:: transposition of left ulnar nerve Oncologic Surgical History: Reports: None Dermatological Surgical History: Reports: None Social & Family History - Family History Family Medical History: Noncontributory - Caffeine Use Caffeine Use: Reports: Energy Drinks ED ROS GENERAL - Review of Systems Review Of Systems: ROS reveals no pertinent complaints other than HPI. ED EXAM, GENERAL - Physical Exam Exam: See Below (see dictation) Course - Vital Signs Last Recorded V/S: Last Vital Signs Temp 97.6 F 10/14/18 12:14 Pulse 101 H 10/14/18 12:14 Resp 20 10/14/18 12:14 BP 163/97 H 10/14/18 12:14 Pulse Ox 97 10/14/18 12:14 - Orders/Labs/Meds Orders: Active Orders 24 hr Category Date Time Status EKG Documentation Completion [RC] STAT Care 10/14/18 12:03 Active RT Aerosol Therapy [RC] ASDIRECTED Care 10/14/18 12:14 Active Sodium Chloride 0.9% [Saline Flush] Med 10/14/18 12:03 Active 10 ml FLUSH ASDIRECTED PRN Sodium Chloride 0.9% [Saline Flush] Med 10/14/18 12:03 Active 2.5 ml FLUSH ASDIRECTED PRN Saline Lock Insert [OM.PC] Stat Oth 10/14/18 12:03 Ordered Medication Orders Sodium Chloride (Saline Flush) 10 ml FLUSH ASDIRECTED PRN PRN Reason: Keep Vein Open Sodium Chloride (Saline Flush) 2.5 ml FLUSH ASDIRECTED PRN PRN Reason: Keep Vein Open Labs: Laboratory Tests 10/14/18 10/14/18 10/14/18 Range/Units 12:10 12:10 12:10 WBC 11.73 H (4.0-11.0) K/uL RBC 4.79 (4.50-5.90) M/uL Hgb 15.2 (13.0-17.0) g/dL Hct 46.1 (38.0-50.0) % MCV 96.2 (80.0-98.0) fL MCH 31.7 (27.0-32.0) pg MCHC 33.0 (31.0-37.0) g/dL RDW Std Deviation 46.8 (28.0-62.0) fl RDW Coeff of Amandeep 14 (11.0-15.0) % Plt Count 265 (150-400) K/uL MPV 9.20 (7.40-12.00) fL Neut % (Auto) 78.0 (48.0-80.0) % Lymph % (Auto) 10.6 L (16.0-40.0) % [place] % (Auto) 9.9 (0.0-15.0) % Eos % (Auto) 1.2 (0.0-7.0) % Baso % (Auto) 0.3 (0.0-1.5) % Neut # (Auto) 9.2 H (1.4-5.7) K/uL Lymph # (Auto) 1.2 (0.6-2.4) K/uL [place] # (Auto) 1.2 H (0.0-0.8) K/uL Eos # (Auto) 0.1 (0.0-0.7) K/uL Baso # (Auto) 0.0 (0.0-0.1) K/uL INR 1.03 D-Dimer, Quantitative (0.0-0.50) mg/L FEU Sodium 142 (136-148) mmol/L Potassium 3.7 (3.5-5.1) mmol/L Chloride 103 (98-107) mmol/L Carbon Dioxide 28.1 (21.0-32.0) mmol/L BUN 20 H (7.0-18.0) mg/dL Creatinine 1.0 (0.8-1.3) mg/dL Est Cr Clr Drug Dosing 97.66 mL/min Estimated GFR (MDRD) > 60.0 ml/min Glucose 106 (74-106) mg/dL Calcium 9.6 (8.5-10.1) mg/dL Total Bilirubin 0.5 (0.2-1.0) mg/dL AST 28 (15-37) IU/L ALT 37 (14-63) IU/L Alkaline Phosphatase 57 (46-116) U/L Troponin I < 0.050 (0.000-0.056) ng/mL B-Natriuretic Peptide (<100) PG/ML Total Protein 7.3 (6.4-8.2) g/dL Albumin 3.7 (3.4-5.0) g/dL Globulin 3.6 (2.6-4.0) g/dL Albumin/Globulin Ratio 1.0 (0.9-1.6) 10/14/18 10/14/18 Range/Units 12:10 12:10 WBC (4.0-11.0) K/uL RBC (4.50-5.90) M/uL Hgb (13.0-17.0) g/dL Hct (38.0-50.0) % MCV (80.0-98.0) fL MCH (27.0-32.0) pg MCHC (31.0-37.0) g/dL RDW Std Deviation (28.0-62.0) fl RDW Coeff of Amandeep (11.0-15.0) % Plt Count (150-400) K/uL MPV (7.40-12.00) fL Neut % (Auto) (48.0-80.0) % Lymph % (Auto) (16.0-40.0) % [place] % (Auto) (0.0-15.0) % Eos % (Auto) (0.0-7.0) % Baso % (Auto) (0.0-1.5) % Neut # (Auto) (1.4-5.7) K/uL Lymph # (Auto) (0.6-2.4) K/uL [place] # (Auto) (0.0-0.8) K/uL Eos # (Auto) (0.0-0.7) K/uL Baso # (Auto) (0.0-0.1) K/uL INR D-Dimer, Quantitative 0.47 (0.0-0.50) mg/L FEU Sodium (136-148) mmol/L Potassium (3.5-5.1) mmol/L Chloride (98-107) mmol/L Carbon Dioxide (21.0-32.0) mmol/L BUN (7.0-18.0) mg/dL Creatinine (0.8-1.3) mg/dL Est Cr Clr Drug Dosing mL/min Estimated GFR (MDRD) ml/min Glucose (74-106) mg/dL Calcium (8.5-10.1) mg/dL Total Bilirubin (0.2-1.0) mg/dL AST (15-37) IU/L ALT (14-63) IU/L Alkaline Phosphatase (46-116) U/L Troponin I (0.000-0.056) ng/mL B-Natriuretic Peptide 151 H (<100) PG/ML Total Protein (6.4-8.2) g/dL Albumin (3.4-5.0) g/dL Globulin (2.6-4.0) g/dL Albumin/Globulin Ratio (0.9-1.6) Meds: Medications Generic Name Dose Route Start Last Admin Trade Name Freq PRN Reason Stop Dose Admin Sodium Chloride 10 ml 10/14/18 12:03 Saline Flush FLUSH ASDIRECTED PRN Keep Vein Open Sodium Chloride 2.5 ml 10/14/18 12:03 Saline Flush FLUSH ASDIRECTED PRN Keep Vein Open Discontinued Medications Generic Name Dose Route Start Last Admin Trade Name Freq PRN Reason Stop Dose Admin Albuterol/Ipratropium 3 ml 10/14/18 12:14 10/14/18 12:15 Duoneb 3.0-0.5 Mg/3 Ml NEB 10/14/18 12:15 3 ml ONETIME ONE Administration Albuterol/Ipratropium Confirm 10/14/18 12:12 Duoneb 3.0-0.5 Mg/3 Ml Administered 10/14/18 12:13 Dose 3 ml .ROUTE .STK-MED ONE Sodium Chloride 1,000 mls @ 999 mls/hr 10/14/18 12:03 10/14/18 12:45 Normal Saline IV 10/14/18 13:03 999 mls/hr BOLUS ONE Administration Methylprednisolone Sodium Succinate 125 mg 10/14/18 12:41 10/14/18 12:53 Solu-Medrol IVPUSH 10/14/18 12:42 125 mg ONETIME ONE Administration Departure - Departure Time of Disposition: 13:53 Disposition: Home, Self-Care 01 Condition: Good Clinical Impression: Bronchitis - Discharge Information Prescriptions: Albuterol [Ventolin HFA] 1 puff INH Q4H #1 inhaler methylPREDNISolone [Medrol] 4 mg PO ASDIRECTED #1 tab.ds.pk Referrals: PCP,Unknown [Primary Care Provider] - Forms: ED Department Discharge Additional Instructions: The following information is given to patients seen in the emergency department who are being discharged to home. This information is to outline your options for follow-up care. We provide all patients seen in our emergency department with a follow-up referral. The need for follow-up, as well as the timing and circumstances, are variable depending upon the specifics of your emergency department visit. If you don't have a primary care physician on staff, we will provide you with a referral. We always advise you to contact your personal physician following an emergency department visit to inform them of the circumstance of the visit and for follow-up with them and/or the need for any referrals to a consulting specialist. The emergency department will also refer you to a specialist when appropriate. This referral assures that you have the opportunity for follow-up care with a specialist. All of these measure are taken in an effort to provide you with optimal care, which includes your follow-up. Under all circumstances we always encourage you to contact your private physician who remains a resource for coordinating your care. When calling for follow-up care, please make the office aware that this follow-up is from your recent emergency room visit. If for any reason you are refused follow-up, please contact the [facility] Emergency Department at and asked to speak to the emergency department charge nurse. [facility] [address] [place] [address] [place] [address] Take medications as instructed Follow up with primary care provider Return to ED as needed as discussed - My Orders Last 24 Hours: My Active Orders 10/14/18 12:03 EKG Documentation Completion [RC] STAT Sodium Chloride 0.9% [Saline Flush] 10 ml FLUSH ASDIRECTED PRN Sodium Chloride 0.9% [Saline Flush] 2.5 ml FLUSH ASDIRECTED PRN Saline Lock Insert [OM.PC] Stat 10/14/18 12:14 RT Aerosol Therapy [RC] ASDIRECTED - Assessment/Plan Last 24 Hours: My Active Orders 10/14/18 12:03 EKG Documentation Completion [RC] STAT Sodium Chloride 0.9% [Saline Flush] 10 ml FLUSH ASDIRECTED PRN Sodium Chloride 0.9% [Saline Flush] 2.5 ml FLUSH ASDIRECTED PRN Saline Lock Insert [OM.PC] Stat 10/14/18 12:14 RT Aerosol Therapy [RC] ASDIRECTED
[2018-10-14] MEDS ORDERED: Albuterol/Ipratropium 3.0-0.5 MG/3 ML Neb Soln ONE (12:12)
[2018-10-14] MEDS ORDERED: Albuterol/Ipratropium 3.0-0.5 MG/3 ML Neb Soln NEB ONE (12:14)
[2018-10-14] MEDS ORDERED: methylPREDNISolone Sodium Succinate 125 MG/2 ML SDV IVPUSH ONE (12:41)
[2018-10-14 12:48] LABS: BLOOD UREA NITROGEN,BUN 20 mg/dL (7.0-18.0); CARBON DIOXIDE,CO2 28.1 mmol/L (21.0-32.0); CHLORIDE,CL 103 mmol/L (98-107); GLUCOSE RANDOM 106 mg/dL (74-106); POTASSIUM,K 3.7 mmol/L (3.5-5.1); SODIUM,NA 142 mmol/L (136-148)
--- NOTE | 2018-10-14 13:22 | CR ---
INDICATION: Shortness of breath COMPARISON: None available. FINDINGS: An erect single view of the chest was obtained at 1231 hours. The lungs are clear. No focal or diffuse infiltrates are present. The heart is mildly enlarged. The mediastinum is otherwise normal in appearance. The osseous structures are normal in appearance for the patient`s age. IMPRESSION: Mild cardiomegaly. Otherwise no active disease seen in the chest. Dictated by Chance Alvares MD @ Oct 14 2018 1:19PM Signed by Dr. Chance Alvares @ Oct 14 2018 1:20PM
== END 2018-10-14 14:01 | disposition home or self-care (01) ==
LOC: MW.ED 12:01
DX: J40 Bronchitis, not specified as acute or chronic (principal); I10 Essential (primary) hypertension; Z88.5 Allergy status to narcotic agent; Z79.899 Other long term (current) drug therapy; Z87.442 Personal history of urinary calculi
CPT/HCPCS: 36415; 71045; 80053; 83880; 84484; 85025; 85379; 85610; 93005; 94640; 96361; 96374; 99285; J2930; J7040; 99283; J7620-GY

== ENCOUNTER 2020-09-19 11:07 | Emergency (ER) | payer SELFPAY ==
[2020-09-19] MEDS ORDERED: Ketorolac 60 MG/2 ML SDV IM ONE (11:58)
[2020-09-19] MEDS ORDERED: Acetaminophen/oxyCODONE 325-10 MG Tab PO ONE (11:58)
--- NOTE | 2020-09-19 12:13 | EDM.PDOC ---
ED HPI GENERAL MEDICAL PROBLEM - General Chief Complaint: Back Pain or Injury Stated Complaint: BACK PAIN Time Seen by Provider: 09/19/20 11:12 Source of Information: Reports: Patient History Limitations: Reports: No Limitations - History of Present Illness INITIAL COMMENTS - FREE TEXT/NARRATIVE: HISTORY AND PHYSICAL: History of present illness: Patient is a 55-year-old male on chronic narcotic medication for low back pain, who presents to the ED today with concern of running out of his narcotic medication 2 days ago with worsening back pain starting today. Patient states his back pain is typical of his usual chronic low back pain. Patient states that many years ago he fractured his L4 and his L5 and since then has had chronic low back pain. Patient states that he has been told that he weighs too much so cannot get surgery on his back and since then has been on chronic narcotic pain medication. Patient states he follows in the residency clinic and used to see Dr. Dominguez, however, the resident just graduated the program and a new set of residents are just starting, so he was unable to make an appointment with him this month as he typically would to receive his chronic Oxycodone medication. Patient states because of this he made an appointment with Brittany Martínez PA-C in the clinic and has an appointment on September 23, 2020 (4 days from now) to transition care to her since Dr. Dominguez has now graduated the residency program. Patient denies any loss or retention of bowel bladder function or saddle anesthesia. Patient denies fever, chills, chest pain, shortness of breath, or cough. Denies headache, neck stiff ness, change in vision, syncope, or near syncope. Denies nausea, vomiting, abdominal pain, diarrhea, constipation, or dysuria. Has not noted any blood in urine or stool. Patient has been eating and drinking appropriately. Review of systems: As per history of present illness and below otherwise all systems reviewed and negative. Past medical history: As per history of present illness and as reviewed below otherwise noncontributory. Surgical history: As per history of present illness and as reviewed below otherwise noncontributory. Social history: See social history for further information Family history: As per history of present illness and as reviewed below otherwise noncontributory. Physical exam: General: Patient is alert, oriented, and in no acute distress. Patient sitting comfortably on exam table. Vitals stable and reviewed by me. HEENT: Atraumatic, normocephalic, pupils equal and reactive bilaterally, negativ e for conjunctival pallor or scleral icterus, mucous membranes moist, TMs normal bilaterally, throat clear, neck supple, nontender, trachea midline. No drooling or trismus noted. No meningeal signs. No hot potato voice noted. Lungs: Clear to auscultation, breath sounds equal bilaterally, chest nontender. Heart: S1S2, regular rate and rhythm without overt murmur Abdomen: Soft, nondistended, nontender. Negative for masses or hepatosplenomegaly. Negative for costovertebral tenderness. Pelvis: Stable nontender. Genitourinary: Deferred. Rectal: Deferred. Skin: Intact, warm, dry. No lesions or rashes noted. Extremities: No obvious deformity of the complete spine. No step-offs, crepitus, or point tenderness to palpation of the complete spine. Patient does have limited range of motion of the lumbar spine due to pain but is able to ambulate today in the ED. Heel/toe gait intact. Patellar reflexes intact bilaterally. Straight leg raise intact bilaterally. Otherwise, atraumatic, negative for cords or calf pain. Neurovascular unremarkable. Neuro: Awake, alert, oriented. Cranial nerves II through XII unremarkable. Cerebellum unremarkable. Motor and sensory unremarkable throughout. Exam n onfocal. Notes: Patient is a 55-year-old male, with a history of long-term narcotic/opioid use due to low back pain, who presents emergency room today with concern of running out of his medications. Patient typically follows with Dr. Dominguez in the clinic but was unable to get his routinely monthly appointment this month as Dr. Dominguez has now graduated the residency program and patient is transitioning care to another provider Brittany Martínez in the clinic. Patient has an appointment in 4 days on September 23 with the new provider that he plans to follow with with his care from here on out but ran out of his chronic oxycodone while awaiting this new appointment. Patient takes oxycodone 10 mg 3 times a day. I did review the [place] prescription log and this does appear consistent with patient's story and was receiving oxycodone 10 mg 3 times a day consistently from Dr. Dominguez for the past year. I discussed with patient that I am willing to provide him with enough tabs to get him to his appointment on September 23 with Brittany Martínez but I will not prescribe him alf narcotics through the Emergency Room and he needs to have this conversation with Brittany Martínez at his appointment in 4 days on further plan of care with narcotics. Signs and symptoms that were prompt return to the ED thoroughly discussed with patient. Discussed importance for follow-up with his primary care provider. Voices understanding and is agreeable to plan of care. Denies any further questions or concerns at this time. Diagnostics: None Therapeutics: Toradol, oxycodone Prescription: Oxycodone 10mg (dispense #10 tabs-enough tabs to get him to his PCP appointment in 4 days) Impression: Chronic low back pain Medication refill Chronic narcotic use secondary to low back pain Plan: 1. Take medication as prescribed. You can also alternate ibuprofen and Tylenol as directed for pain and discomfort. 2. I prescribed enough Oxycodone to you to get you to your appointment on September 23 2020 with Brittany Martínez with the intention for further narcotic / chronic narcotic use to be discussed at this appointment with her. 3. Follow-up with your primary care provider as scheduled and as discussed. Return to the ED as needed and as discussed. Definitive disposition and diagnosis as appropriate pending reevaluation and review of above. Lower Back Pain Score (Numeric/FACES): 5 - Related Data Allergies Allergy/AdvReac Type Severity Reaction Status Date / Time buprenorphine [From Suboxone] Allergy Swelling Verified 09/19/20 11:27 naloxone [From Suboxone] Allergy Swelling Verified 09/19/20 11:27 Home Meds: Home Meds Lisinopril/Hydrochlorothiazide [Lisinopril-Hctz 20-25 mg Tab] 1 tab PO QAM 05/30/18 [History] Hydrocodone/Acetaminophen [Hydrocodon-Acetaminophen 5-325] 1 tab PO Q6H PRN 08/30/18 [History] Albuterol [Ventolin HFA] 1 puff INH Q4H #1 inhaler 10/14/18 [Rx] Testosterone Enanthate [Xyosted] mg INJECT WEEKLY 10/14/18 [History] methylPREDNISolone [Medrol] 4 mg PO ASDIRECTED #1 tab.ds.pk 10/14/18 [Rx] oxyCODONE 5 mg PO DAILY #1 cup 09/19/20 [Rx] oxyCODONE HCl [Oxycodone HCL] 0 mg PO Q8H PRN #10 tablet 09/19/20 [Rx] Past Medical History HEENT History: Reports: Other (See Below) Other HEENT History: uses reading glasses, has upper partial removable denture Cardiovascular History: Reports: Hypertension Other Cardiovascular History: has been off Lisinopril for 3 weeks Respiratory History: Reports: None Gastrointestinal History: Reports: None Genitourinary History: Reports: Renal Calculus Musculoskeletal History: Reports: Back Pain, Chronic, Fracture Other Musculoskeletal History: hx of fx back Neurological History: Reports: Other (See Below) Other Neuro History: hx of motion sickness Psychiatric History: Reports: PTSD Other Psychiatric History: has taken Adderal in the past Endocrine/Metabolic History: Reports: Obesity/BMI 30+ Hematologic History: Reports: None Immunologic History: Reports: None Oncologic (Cancer) History: Reports: None Dermatologic History: Reports: None - Infectious Disease History Infectious Disease History: Reports: None - Past Surgical History Head Surgeries/Procedures: Reports: None HEENT Surgical History: Reports: Myringotomy w Tube(s) Cardiovascular Surgical History: Reports: None Respiratory Surgical History: Reports: None GI Surgical History: Reports: Hernia, Inguinal Male Surgical History: Reports: None Endocrine Surgical History: Reports: None Neurological Surgical History: Reports: None Musculoskeletal Surgical History: Reports: Other (See Below) Other Musculoskeletal Surgeries/Procedures:: transposition of left ulnar nerve Oncologic Surgical History: Reports: None Dermatological Surgical History: Reports: None Social & Family History - Family History Family Medical History: No Pertinent Family History - Tobacco Use Tobacco Use Status *Q: Never Tobacco User - Caffeine Use Caffeine Use: Reports: None - Recreational Drug Use Recreational Drug Use: No ED ROS GENERAL - Review of Systems Review Of Systems: Comprehensive ROS is negative, except as noted in HPI. ED EXAM, GENERAL - Physical Exam Exam: See Below (see dictation) Course - Vital Signs Last Recorded V/S: Last Vital Signs Temp 97.3 F 09/19/20 11:27 Pulse 100 09/19/20 11:27 Resp 16 09/19/20 11:27 BP 166/94 H 09/19/20 11:27 Pulse Ox 99 09/19/20 11:27 - Orders/Labs/Meds Meds: Medications Discontinued Medications Generic Name Dose Route Start Last Admin Trade Name Freq PRN Reason Stop Dose Admin Ketorolac Tromethamine 60 mg 09/19/20 11:58 09/19/20 12:08 Ketorolac 60 Mg/2 Ml Sdv IM 09/19/20 11:59 60 mg ONETIME ONE Administration Oxycodone/Acetaminophen 1 tab 09/19/20 11:58 09/19/20 12:09 Acetaminophen/Oxycodone 325-10 Mg Tab PO 09/19/20 11:59 1 tab ONETIME ONE Administration Departure - Departure Time of Disposition: 12:10 Disposition: Home, Self-Care 01 Clinical Impression: Chronic narcotic use, Medication refill Chronic low back pain Qualifiers: Back pain laterality: unspecified Sciatica presence: unspecified whether sc iatica present Qualified Code(s): M54.5 - Low back pain; G89.29 - Other chronic pain - Discharge Information Prescriptions: oxyCODONE 5 mg PO DAILY #1 cup oxyCODONE HCl [Oxycodone HCL] 0 mg PO Q8H PRN #10 tablet PRN Reason: Pain (Severe 7-10) Referrals: PCP,None [Primary Care Provider] - Forms: ED Department Discharge Additional Instructions: The following information is given to patients seen in the emergency department who are being discharged to home. This information is to outline your options for follow-up care. We provide all patients seen in our emergency department with a follow-up referral. The need for follow-up, as well as the timing and circumstances, are variable depending upon the specifics of your emergency department visit. If you don't have a primary care physician on staff, we will provide you with a referral. We always advise you to contact your personal physician following an emergency department visit to inform them of the circumstance of the visit and for follow-up with them and/or the need for any referrals to a consulting specialist. The emergency department will also refer you to a specialist when appropriate. This referral assures that you have the opportunity for follow-up care with a specialist. All of these measure are taken in an effort to provide you with optimal care, which includes your follow-up. Under all circumstances we always encourage you to contact your private physician who remains a resource for coordinating your care. When calling for follow-up care, please make the office aware that this follow-up is from your recent emergency room visit. If for any reason you are refused follow-up, please contact the [facility] Emergency Department at and asked to speak to the emergency department charge nurse. [facility] [address] [place] [address] [id number] 1. Take medication as prescribed. You can also alternate ibuprofen and Tylenol as directed for pain and discomfort. 2. I prescribed enough Oxycodone to you to get you to your appointment on September 23 2020 with Brittany Martínez with the intention for further narcotic / chronic narcotic use to be discussed at this appointment with her. 3. Follow-up with your primary care provider as scheduled and as discussed. Return to the ED as needed and as discussed. Sepsis Event Note (ED) - Evaluation Sepsis Screening Result: No Definite Risk - Focused Exam Vital Signs: Vital Signs Temp Pulse Resp BP Pulse Ox 09/19/20 11:27 97.3 F 100 16 166/94 H 99
== END 2020-09-19 12:27 | disposition home or self-care (01) ==
LOC: MW.ED 11:07
DX: G89.29 Other chronic pain (principal); M54.5 Low back pain; F11.90 Opioid use, unspecified, uncomplicated; Z76.0 Encounter for issue of repeat prescription; I10 Essential (primary) hypertension; E66.9 Obesity, unspecified; Z68.41 Body mass index [BMI] 40.0-44.9, adult; Z88.8 Allergy status to other drugs, medicaments and biological substances; Z79.899 Other long term (current) drug therapy
CPT/HCPCS: 96372; 99283; A9270; J1885

== ENCOUNTER 2020-11-28 13:27 | Emergency (ER) | payer MEDICAID, OTHER ==
[2020-11-28] MEDS ORDERED: Ketorolac 60 MG/2 ML SDV IM ONE (14:43)
[2020-11-28] MEDS ORDERED: HYDROmorphone 1 MG/ML Syringe IM ONE (14:48)
--- NOTE | 2020-11-28 14:50 | EDM.PDOC ---
ED HPI GENERAL MEDICAL PROBLEM - General Chief Complaint: Back Pain or Injury Stated Complaint: SIATIC Time Seen by Provider: 11/28/20 14:25 Source of Information: Reports: Patient History Limitations: Reports: No Limitations - History of Present Illness INITIAL COMMENTS - FREE TEXT/NARRATIVE: HISTORY AND PHYSICAL: History of present illness: The patient is a 55-year-old male that presents to the emergency room with bilateral buttocks pain that started Sunday. The patient states that he has been taking Aleve several times a day but the pain is not going away. The patie nt states that the pain stays mainly in his buttocks but is worse when he is trying to walk. 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 The patient denies any trouble with his bowels or bladder. The patient denies any numbness or burning sensations. The patient has not used ice or heat on it. Patient denies any fever, chills, headache, change in vision, syncope or near syncope. Denies any chest pain, back pain, shortness of breath or cough. Denies any abdominal pain, nausea, vomiting, diarrhea, constipation or dysuria. Has not noted any blood in urine or stool. Patient has been eating and drinking appropriately. Review of systems: As per history of present illness and below otherwise all systems reviewed and negative. Past medical history: As per history of present illness and as reviewed below otherwise noncontributory. Surgical history: As per history of present illness and as reviewed below otherwise noncontributory. Social history: See social history for further information Family history: As per history of present illness and as reviewed below otherwise noncontributory. Physical exam: General: Well developed and well nourished. Alert and orientated x 3. Nontoxic in appearance and in no acute distress. Vital signs are stable and have been reviewed by me. Nursing notes were reviewed. HEENT: Atraumatic, normocephalic, pupils equal and reactive bilaterally, negative for conjunctival pallor or scleral icterus, mucous membranes moist, TMs normal bilaterally, throat clear, neck supple, nontender, trachea midline. No drooling or trismus noted. No meningeal signs. No hot potato voice noted. Lungs: Clear to auscultation bilaterally. No wheezes, rales, or rhonchi. Chest nontender. Normal work of breathing, no accessory muscles used. Heart: S1S2, regular rate and rhythm without overt murmur, gallops, or rubs. No JVD. No peripheral edema Abdomen: Soft, nondistended, nontender. Normoactive bowel sounds. Negative for masses or costovertebral tenderness. Skin: Intact, warm, dry. No lesions or rashes noted. Back: Neck and back have no deformities, external skin changes, or signs of trauma. Curvature of the cervical, thoracic, and lumbar spine are within normal limits. Bony features of the shoulders and hips are of equal height bilaterally. Posture is upright, gait is smooth, steady, and within normal limits. No tenderness is noted on palpation of the spinous processes. Spinous processes are midline. Cervical, thoracic, and lumbar paraspinal muscles are not tender and are without spasm. No discomfort is noted with flexion, extension, and saya-[id number] rotation of the cervical spine, full range of motion is noted. Full range of motion including flexion, extension, and crru-zc-brun rotation of the thoracic and lumbar spine are noted and without discomfort. Straight leg raise test pain bilaterally. Sensation to the upper and lower extremities is normal bilaterally. No clonus is noted. Hvac Tech strength is normal bilaterally. Dorsi/plantar flexion is normal bilaterally. Hematologic: No petechiae or purpra. Mucosa appropriate color and normal nail bed color and refill. Extremities: Atraumatic, moves all extremities per self without difficulty or deficits, negative for cords or calf pain. Neurovascular unremarkable. Neuro: Awake, alert, oriented. Cranial nerves II through XII unremarkable. Cerebellum unremarkable. Motor and sensory unremarkable throughout. Exam nonfocal. Psychiatric: Mood and affect are appropriate. Normal thought process. Answering questions appropriately. Notes: *This patient was seen and evaluated during the 2019 SARS-CoV-2 novel brian navirus pandemic period. Community viral transmission is ongoing at time of this encounter and the emergency department is operating under pandemic response procedures. As stated above the patient is a 55-year-old male that comes to the emergency department vital buttocks pain that is worse with walking. He does not have. Have any neurological involvement. He does have straight leg raise pain on bilateral legs with any movement. I will treat the patient with Toradol 60 mg IM and Dilaudid 1 mg IM. After discussing with the patient he does not want any imaging. The patient states that he has a follow-up appointment with his PCP. The patient feels much better and is able to walk with relatively no pain after injection of Toradol and Dilaudid. I have talked extensively with the patient about the need to follow-up with her primary care for possible referral for orthopedic surgeon or physical therapy to assist with pain control. The patient states that he will follow-up. I will give the patient hydrocodone 10/325 mg p.o. 4 hours as needed for pain #8 to assist him with 2 days of pain relief. I have also discussed the appropriate dose of Aleve the patient should be taking and the possible need for him to take Pepcid [id number] while taking the Aleve. The patient is agreeable with this discharge plan. I have talked with the patient about today's findings, in addition to providing specific details for plan of care. Reassessment at the time of disposition demonstrates that the patient is in no acute distress. The patient is stable for discharge, counseling was provided and we discussed in great detail signs and symptoms that would prompt them to return to the Emergency Department. Medication, follow up and supportive care measures were reviewed and discussed. Voices understanding and is agreeable to plan of care. Denies any further questions or concerns at this time. Therapeutics: Toradol 60 mg, Dilaudid 1 mg Prescription: Hydrocodone 10/325 mg p.o. every 4 hours as needed for pain #8 Impression: Bilateral back/buttocks pain Plan: 1. You were evaluated today on an emergent basis. Your complaints of bilateral buttocks pain was evaluated and treated with Dilaudid 1 mg and Toradol 60 mg. You need to use Motrin or your Aleve, but ensure that you are losing the appropriate dosage. For Aleve it is 220 mg every 8-12 hours. You can take an max of 3 tablets in 24 hours. I would take an [id number] Pepcid to ensure that you do not get stomach upset with this. I have given you 2 days of pain medication to assist with the pain. You are not allowed to drive while taking this medication. You need to follow-up with a primary care physician and get appropriate physical therapy exercises to prevent this from happening again. 2. You can alternate Tylenol and ibuprofen as needed for pain and fever management. 3. We encourage you to follow up with your primary care provider and/or recommended specialist in the next few days for re-evaluation and further care/management. 4. If your symptoms should worsen, new symptoms develop or any of the signs and symptoms we discussed should arise please return to the emergency room or call 911 (if needed). Definitive disposition and diagnosis as appropriate pending reevaluation and review of above. Treatments STRATEGIC ACCOUNTS MANAGER: Reports: Cold Therapy, Heat Therapy Hip Pain Score (Numeric/FACES): 7 - Related Data Allergies Allergy/AdvReac Type Severity Reaction Status Date / Time buprenorphine [From Suboxone] Allergy Swelling Verified 11/29/20 15:52 naloxone [From Suboxone] Allergy Swelling Verified 11/29/20 15:52 Home Meds: Home Meds Lisinopril/Hydrochlorothiazide [Lisinopril-Hctz 20-25 mg Tab] 1 tab PO QAM 05/30/18 [History] Testosterone Enanthate [Xyosted] 1 mg INJECT WEEKLY 10/14/18 [History] Hydrocodone/Acetaminophen [HYDROcodone-Acetaminophen 10-325 MG] 1 each PO Q4HR PRN 2 Days #8 tablet 11/28/20 [Rx] Past Medical History HEENT History: Reports: Other (See Below) Other HEENT History: uses reading glasses, has upper partial removable denture Cardiovascular History: Reports: Hypertension Other Cardiovascular History: has been off Lisinopril for 3 weeks Respiratory History: Reports: None Gastrointestinal History: Reports: None Genitourinary History: Reports: Renal Calculus Musculoskeletal History: Reports: Back Pain, Chronic, Fracture Other Musculoskeletal History: hx of fx back Neurological History: Reports: Other (See Below) Other Neuro History: hx of motion sickness Psychiatric History: Reports: PTSD Other Psychiatric History: has taken Adderal in the past Endocrine/Metabolic History: Reports: Obesity/BMI 30+ Hematologic History: Reports: None Immunologic History: Reports: None Oncologic (Cancer) History: Reports: None Dermatologic History: Reports: None - Infectious Disease History Infectious Disease History: Reports: None - Past Surgical History Head Surgeries/Procedures: Reports: None HEENT Surgical History: Reports: Myringotomy w Tube(s) Cardiovascular Surgical History: Reports: None Respiratory Surgical History: Reports: None GI Surgical History: Reports: Hernia, Inguinal Male Surgical History: Reports: None Endocrine Surgical History: Reports: None Neurological Surgical History: Reports: None Musculoskeletal Surgical History: Reports: Other (See Below) Other Musculoskeletal Surgeries/Procedures:: transposition of left ulnar nerve Oncologic Surgical History: Reports: None Dermatological Surgical History: Reports: None Social & Family History - Family History Family Medical History: No Pertinent Family History - Tobacco Use Tobacco Use Status *Q: Former Tobacco User Years of Tobacco use: 20 Used Tobacco, but Quit: Yes Month/Year Tobacco Last Used: 2002 - Caffeine Use Caffeine Use: Reports: Energy Drinks - Recreational Drug Use Recreational Drug Use: No ED ROS GENERAL - Review of Systems Review Of Systems: Comprehensive ROS is negative, except as noted in HPI. ED EXAM, UPPER BACK/NECK PAIN - Physical Exam Exam: See Below (See dictation) Course - Vital Signs Last Recorded V/S: Last Vital Signs Temp 97.6 F 11/28/20 16:00 Pulse 89 11/28/20 16:00 Resp 20 11/28/20 16:00 BP 164/108 H 11/28/20 16:00 Pulse Ox 96 11/28/20 16:00 - Orders/Labs/Meds Meds: Medications Discontinued Medications Generic Name Dose Route Start Last Admin Trade Name Freq PRN Reason Stop Dose Admin Hydromorphone HCl 1 mg 11/28/20 14:48 11/28/20 15:00 Hydromorphone 1 Mg/Ml Syringe IM 11/28/20 14:49 1 mg ONETIME ONE Administration Ketorolac Tromethamine 60 mg 11/28/20 14:43 11/28/20 14:56 Ketorolac 60 Mg/2 Ml Sdv IM 11/28/20 14:44 60 mg ONETIME ONE Administration Departure - Departure Time of Disposition: 15:59 Disposition: Home, Self-Care 01 Condition: Good Clinical Impression: Back pain Qualifiers: Back pain location: low back pain Chronicity: acute Back pain laterality: right Sciatica presence: without sciatica Qualified Code(s): M54.5 - Low back pain - Discharge Information *PRESCRIPTION DRUG MONITORING PROGRAM REVIEWED*: Not Applicable *COPY OF PRESCRIPTION DRUG MONITORING REPORT IN PATIENT FARAZ: Not Applicable Prescriptions: Hydrocodone/Acetaminophen [HYDROcodone-Acetaminophen 10-325 MG] 1 each PO Q4HR PRN 2 Days #8 tablet PRN Reason: Pain Instructions: Acute Back Pain, Adult Referrals: PCP,None [Primary Care Provider] - Forms: ED Department Discharge Additional Instructions: The following information is given to patients seen in the emergency department who are being discharged to home. This information is to outline your options for follow-up care. We provide all patients seen in our emergency department with a follow-up referral. The need for follow-up, as well as the timing and circumstances, are variable depending upon the specifics of your emergency department visit. If you don't have a primary care physician on staff, we will provide you with a referral. We always advise you to contact your personal physician following an emergency department visit to inform them of the circumstance of the visit and for follow-up with them and/or the need for any referrals to a consulting specialist. The emergency department will also refer you to a specialist when appropriate. This referral assures that you have the opportunity for follow-up care with a specialist. All of these measure are taken in an effort to provide you with optimal care, which includes your follow-up. Under all circumstances we always encourage you to contact your private physician who remains a resource for coordinating your care. When calling for follow-up care, please make the office aware that this follow-up is from your recent emergency room visit. If for any reason you are refused follow-up, please contact the [facility] Emergency Department at and asked to speak to the emergency department charge nurse. [facility] - Primary Care [address] [place], [place] [id number] [place] [address] Plan: 1. You were evaluated today on an emergent basis. Your complaints of bilateral buttocks pain was evaluated and treated with Dilaudid 1 mg and Toradol 60 mg. You need to use Motrin or your Aleve, but ensure that you are losing the appropriate dosage. For Aleve it is 220 mg every 8-12 hours. You can take an max of 3 tablets in 24 hours. I would take an [id number]-hvftivq Pepcid to ensure that you do not get stomach upset with this. I have given you 2 days of pain medication to assist with the pain. You are not allowed to drive while taking this medication. You need to follow-up with a primary care physician and get appropriate physical therapy exercises to prevent this from happening again. 2. You can alternate Tylenol and ibuprofen as needed for pain and fever management. 3. We encourage you to follow up with your primary care provider and/or recommended specialist in the next few days for re-evaluation and further care/ management. 4. If your symptoms should worsen, new symptoms develop or any of the signs and symptoms we discussed should arise please return to the emergency room or call 911 (if needed).
== END 2020-11-28 16:09 | disposition home or self-care (01) ==
LOC: MW.ED 13:27
DX: M54.5 Low back pain (principal); I10 Essential (primary) hypertension; E66.9 Obesity, unspecified; Z68.42 Body mass index [BMI] 45.0-49.9, adult; Z87.891 Personal history of nicotine dependence; Z88.8 Allergy status to other drugs, medicaments and biological substances; Z79.899 Other long term (current) drug therapy
CPT/HCPCS: 96372; 99283; J1170; J1885

== ENCOUNTER 2020-11-29 15:27 | Emergency (ER) | payer MEDICAID, OTHER | END 2020-11-29 17:59 | disposition left against medical advice (07) | LOC: MW.ED 15:27 | DX: M79.10 Myalgia, unspecified site (principal); Z53.21 Procedure and treatment not carried out due to patient leaving prior to being seen by health care provider ==

== ENCOUNTER 2020-12-12 13:35 | Emergency (ER) | payer MEDICAID ==
[2020-12-12] MEDS ORDERED: Dexamethasone 10 MG/ML SDV IM STA (14:37)
--- NOTE | 2020-12-12 14:52 | EDM.PDOC ---
ED HPI GENERAL MEDICAL PROBLEM - General Chief Complaint: Back Pain or Injury Stated Complaint: CHRISTIANNE Time Seen by Provider: 12/12/20 14:14 - History of Present Illness INITIAL COMMENTS - FREE TEXT/NARRATIVE: History of present illness: [] The patient started having pain in his buttocks on 24 November. He was here 28 November. At that time CT of the abdomen pelvis showed small umbilical and inguinal hernias with fat and no bowel contents. He improved somewhat with IM ketorolac and hydromorphone. Subsequently has gradually increasing pain that radiates down both thighs mostly in posterior right thigh. He has a history of sciatica. Patient has a complex history of pain medication needs starting when he was age 16 and drink beer was sent to a rehab facility according to him. Then he was tried on buprenorphine because he was going to need longstanding pain for sciatica but that caused a rash and was switched to OxyContin and on it for years. He has not been on it recently. Patient has severe pain in his posterior buttocks that radiates down the right posterior thigh and some pain in left that radiates down left worse with movement. Review of systems: As per history of present illness and below otherwise all systems reviewed and negative. Past medical history: As per history of present illness and as reviewed below otherwise noncontributory. Surgical history: As per history of present illness and as reviewed below otherwise noncontributory. Social history: No reported history of drug or alcohol abuse. Family history: As per history of present illness and as reviewed below otherwise noncontributo ry. Physical exam: Constitutional -BMI 47.6 well developed, well-nourished and in no acute distress HEENT - normocephalic, no evidence of trauma - external nose and mouth normal - no mass in neck and no JVD - mucosae moist EYES - full EOM, PERRL, no icterus - no evidence of inflammation, injection, or drainage Respiratory - no respiratory distress, equal bilateral expansion, lungs clear to auscultation and no abnormal lung sounds Cardiovascular - Regular Rhythm with S1 and S2 appreciated and no murmur, gallop or rub. GI - abdomen soft without distension or organomegaly - normal bowel sounds - no guard or rebound Musculoskeletal tender buttocks and posterior sacral areas. Straight leg raise on the right to 30 degrees causes right-sided back pain. Straight leg raise raise on the left 45 degrees causes left-sided back pain. No gross deformity of long bones or joints - no tenderness, swelling or edema Neurologic - Alert and oriented times four - CN II-XII grossly intact - motor sensory and coordination symmetrically normal Psychiatric - appropriate mood and affect with normal thought content Hematologic - No petechiae or purpura - mucosa appropriate color and sclera not pale - normal nail bed color and refill Integument - no rash or evidence of trauma - normal turgor Diagnostics: [] Therapeutics: [] Impression: [] Plan: [] Definitive disposition and diagnosis as appropriate pending reevaluation and review of above. Bilateral Leg Pain Score (Numeric/FACES): 6 - Related Data Allergies Allergy/AdvReac Type Severity Reaction Status Date / Time buprenorphine [From Suboxone] Allergy Swelling Verified 12/12/20 14:13 naloxone [From Suboxone] Allergy Swelling Verified 12/12/20 14:13 Home Meds: Home Meds Lisinopril/Hydrochlorothiazide [Lisinopril-Hctz 20-25 mg Tab] 1 tab PO QAM 05/30/18 [History] Testosterone Enanthate [Xyosted] 1 mg INJECT WEEKLY 10/14/18 [History] Hydrocodone/Acetaminophen [HYDROcodone-Acetaminophen 10-325 MG] 1 each PO Q4HR PRN 2 Days #8 tablet 11/28/20 [Rx] Acetaminophen/oxyCODONE [Percocet 325-5 MG] 1 each PO Q4H PRN #14 tab 12/12/20 [Rx] Cyclobenzaprine [Flexeril] 10 mg PO TID PRN #21 tab 12/12/20 [Rx] predniSONE [Prednisone] 60 mg PO DAILY #21 tablet 12/12/20 [Rx] Past Medical History HEENT History: Reports: Other (See Below) Other HEENT History: uses reading glasses, has upper partial removable denture Cardiovascular History: Reports: Hypertension Other Cardiovascular History: has been off Lisinopril for 3 weeks Respiratory History: Reports: None Gastrointestinal History: Reports: None Genitourinary History: Reports: Renal Calculus Musculoskeletal History: Reports: Back Pain, Chronic, Fracture Other Musculoskeletal History: hx of fx back Neurological History: Reports: Other (See Below) Other Neuro History: hx of motion sickness Psychiatric History: Reports: ADHD Other Psychiatric History: has taken Adderal in the past Endocrine/Metabolic History: Reports: Obesity/BMI 30+ Hematologic History: Reports: None Immunologic History: Reports: None Oncologic (Cancer) History: Reports: None Dermatologic History: Reports: None - Infectious Disease History Infectious Disease History: Reports: None - Past Surgical History Head Surgeries/Procedures: Reports: None HEENT Surgical History: Reports: Myringotomy w Tube(s) Cardiovascular Surgical History: Reports: None Respiratory Surgical History: Reports: None GI Surgical History: Reports: Hernia, Inguinal Male Surgical History: Reports: None Endocrine Surgical History: Reports: None Neurological Surgical History: Reports: None Musculoskeletal Surgical History: Reports: Other (See Below) Other Musculoskeletal Surgeries/Procedures:: transposition of left ulnar nerve Oncologic Surgical History: Reports: None Dermatological Surgical History: Reports: None Social & Family History - Family History Family Medical History: No Pertinent Family History - Tobacco Use Tobacco Use Status *Q: Never Tobacco User - Caffeine Use Caffeine Use: Reports: Energy Drinks - Recreational Drug Use Recreational Drug Use: No ED ROS GENERAL - Review of Systems Review Of Systems: Comprehensive ROS is negative, except as noted in HPI. ED EXAM, GENERAL - Physical Exam Exam: See Below Free Text/Narrative:: my physical exam is in the HPI Course - Vital Signs Last Recorded V/S: Last Vital Signs Temp 36.8 C 12/12/20 14:13 Pulse 91 12/12/20 14:13 Resp 17 12/12/20 14:13 BP 147/73 H 12/12/20 14:13 Pulse Ox 94 L 12/12/20 14:13 - Orders/Labs/Meds Meds: Medications Discontinued Medications Generic Name Dose Route Start Last Admin Trade Name Freq PRN Reason Stop Dose Admin Dexamethasone 10 mg 12/12/20 14:37 12/12/20 15:09 Dexamethasone 10 Mg/Ml Sdv IM 12/12/20 14:38 10 mg STAT STA Administration Departure - Departure Time of Disposition: 15:20 Disposition: Home, Self-Care 01 Condition: Good Clinical Impression: Sciatica - Discharge Information Prescriptions: Cyclobenzaprine [Flexeril] 10 mg PO TID PRN #21 tab PRN Reason: Muscle Spasm - Painful Acetaminophen/oxyCODONE [Percocet 325-5 MG] 1 each PO Q4H PRN #14 tab PRN Reason: Pain (Severe 7-10) predniSONE [Prednisone] 60 mg PO DAILY #21 tablet Instructions: Sciatica, [id number] Referrals: PCP,None [Primary Care Provider] - Forms: ED Department Discharge Additional Instructions: Turn immediately if you lose control of your bowel or bladder if you have sensory or motor loss in your lower extremities or buttocks. [facility] - Primary Care [address] [place] [address] [facility] [address] [place] [phone] The following information is given to patients seen in the emergency department who are being discharged to home. This information is to outline your options for follow-up care. We provide all patients seen in our emergency department with a follow-up referral. The need for follow-up, as well as the timing and circumstances, are variable depending upon the specifics of your emergency department visit. If you don't have a primary care physician on staff, we will provide you with a referral. We always advise you to contact your personal physician following an emergency department visit to inform them of the circumstance of the visit and for follow-up with them and/or the need for any referrals to a consulting specialist. The emergency department will also refer you to a specialist when appropriate. This referral assures that you have the opportunity for follow-up care with a specialist. All of these measure are taken in an effort to provide you with optimal care, which includes your follow-up. Under all circumstances we always encourage you to contact your private physician who remains a resource for coordinating your care. When calling for follow-up care, please make the office aware that this follow-up is from your recent emergency room visit. If for any reason you are refused follow-up, please contact the [facility] Emergency Department at and asked to speak to the emergency department charge nurse. Sepsis Event Note (ED) - Focused Exam Vital Signs: Vital Signs Temp Pulse Resp BP Pulse Ox 12/12/20 14:13 36.8 C 91 17 147/73 H 94 L
== END 2020-12-12 15:42 | disposition home or self-care (01) ==
LOC: MW.ED 13:35
DX: M54.41 Lumbago with sciatica, right side (principal); I10 Essential (primary) hypertension; E66.9 Obesity, unspecified; Z68.30 Body mass index [BMI] 30.0-30.9, adult; Z88.5 Allergy status to narcotic agent; Z88.8 Allergy status to other drugs, medicaments and biological substances; Z79.899 Other long term (current) drug therapy
CPT/HCPCS: 96372; 99283; J1100

== ENCOUNTER 2021-02-23 14:16 | Emergency (ER) | payer BC, MEDICAID ==
[2021-02-23] MEDS ORDERED: Orphenadrine 60 MG/2 ML Inj IM ONE (14:35)
[2021-02-23] MEDS ORDERED: Ketorolac 60 MG/2 ML SDV IM ONE (14:35)
--- NOTE | 2021-02-23 14:47 | EDM.PDOC ---
ED HPI GENERAL MEDICAL PROBLEM - General Chief Complaint: Back Pain or Injury Stated Complaint: thorasic pain Time Seen by Provider: 02/23/21 14:20 Source of Information: Reports: Patient History Limitations: Reports: No Limitations - History of Present Illness INITIAL COMMENTS - FREE TEXT/NARRATIVE: HISTORY AND PHYSICAL: History of present illness: Patient is a 55-year-old male who presents to the emergency room with complaints of acute on chronic back pain. Patient recently had an MRI of the cervical, thoracic and lumbar spine (ordered by Dr Russell). Patient states he has surgery scheduled for April 06 at [facility] for a TENS. He states he recently had a change in his insurance and has not been able to obtain a primary care provider. Reportedly he has had a longstanding history of using opiates for pain management. He has taken a "DNA test to see which medications I can metabolize". He has the best luck with OxyContin and oxycodone. Denies any new injury, trauma or falls. Patient denies any fever, chills, headache, change in vision, syncope or near syncope. Denies any numbness, tingling, saddle paraesthesia, weakness, urinary or fecal incontinence. Denies any chest pain, shortness of breath or cough. Denies any GI or symptoms. Patient has been eating and drinking appropriately. No recent travel or sick contacts. Review of systems: As per history of present illness and below otherwise all systems reviewed and negative. Past medical history: As per history of present illness and as reviewed below otherwise noncontributory. Surgical history: As per history of present illness and as reviewed below otherwise noncontributory. Social history: See social history for further information Family history: As per history of present illness and as reviewed below otherwise noncontributory. Physical exam: General: Well developed and well nourished 55 year old male. Alert and orientated x 3. Nontoxic in appearance and in no acute distress. Vital signs are stable and have been reviewed by me. Nursing notes were reviewed. HEENT: Atraumatic, normocephalic, pupils equal and reactive bilaterally, negative for conjunctival pallor or scleral icterus, mucous membranes moist, TMs normal bilaterally, throat clear, neck supple, nontender, trachea midline. No drooling or trismus noted. No meningeal signs. No hot potato voice noted. Lungs: Clear to auscultation bilaterally. No wheezes, rales, or rhonchi. Chest nontender. Normal work of breathing, no accessory muscles used. Heart: S1S2, regular rate and rhythm without overt murmur, gallops, or rubs. No JVD. No peripheral edema Abdomen: Soft, nondistended, nontender. Normoactive bowel sounds. Negative for masses or costovertebral tenderness. C-spine/Back: No pinpoint vertebral tenderness upon palpation. No crepitus, step-offs or obvious deformities. Patient is ambulatory into the emergency room without difficulty or deficit. Able to rock back on heels and walk on toes. Denies any urinary or fecal incontinence. Denies any numbness, tingling or saddle paresthesia. No concerns of serious infection, fracture or cord compression, or cauda equina syndrome. Deep tendon reflexes brisk bilaterally. Skin: Intact, warm, dry. No lesions or rashes noted. Hematologic: No petechiae or purpra. Mucosa appropriate color and normal nail bed color and refill. Extremities: Atraumatic, moves all extremities per self without difficulty or deficits, negative for cords or calf pain. Neurovascular unremarkable. Neuro: Awake, alert, oriented. Cranial nerves II through XII unremarkable. Cerebellum unremarkable. Motor and sensory unremarkable throughout. Exam nonfocal. Psychiatric: Mood and affect are appropriate. Normal thought process. Answering questions appropriately. Please note that the patient was seen and evaluated during the 2019 SARS-CoV-2 novel coronavirus pandemic period. Community viral transmission is ongoing at time of this encounter and the emergency department is operating under pandemic response procedures. Medical Decision Making: Patient is a 55 year old male who presents to the ED with complaints of chronic back pain. He is requesting pain managment. Physical exam is unremarkable. He has no neurological symptoms. Declines wanting any diagnostics today. 12/24/20: Patient has had an MRI of the cervical, thoracic and lumbar spine. Results were reviewed. Will give him limited pain medication. I have talked with the patient about today's findings, in addition to providing specific details for plan of care. Reassessment at the time of disposition demonstrates that the patient is in no acute distress. The patient is stable for discharge, counseling was provided and we discussed in great detail signs and symptoms that would prompt them to return to the Emergency Department. Medication, follow up and supportive care measures were reviewed and discussed. Voices understanding and is agreeable to plan of care. Denies any further questions or concerns at this time. Diagnostics: None Therapeutics: Norflex, Toradol Prescription: Percocet (#14) and Prednisone Impression: Chronic back pain Pain management Plan: 1. You were evaluated today on an emergent basis. It is important that you establish care with a primary care provider who can refill your narcotic pain medication and help you with your chronic health needs. It will also be important you have someone to follow-up with once you have your procedure done in [place]. Above are listed phone numbers you can call, please set up an appointment. We will not further refill your narcotics through the emergency room. 2. You can alternate Tylenol and ibuprofen as needed for pain and fever management. Please take the steroid and Percocet as directed. 3. We encourage you to follow up for re-evaluation and further care/management. 4. If your symptoms should worsen, new symptoms develop or any of the signs and symptoms we discussed should arise please return to the emergency room or call 911 (if needed). Definitive disposition and diagnosis as appropriate pending reevaluation and review of above. back pain Pain Score (Numeric/FACES): 6 - Related Data Allergies Allergy/AdvReac Type Severity Reaction Status Date / Time buprenorphine [From Suboxone] Allergy Swelling Verified 02/23/21 14:25 naloxone [From Suboxone] Allergy Swelling Verified 02/23/21 14:25 Home Meds: Home Meds Lisinopril/Hydrochlorothiazide [Lisinopril-Hctz 20-25 mg Tab] 1 tab PO QAM 05/30/18 [History] Acetaminophen/oxyCODONE [Percocet 325-5 MG] 1 each PO Q4HR PRN #12 tab 02/23/21 [Rx] Amphetamine/Dextroamphetamine [Adderall] 1 tab PO ASDIRECTED 02/23/21 [History] amLODIPine [Norvasc] 1 tab PO ASDIRECTED 02/23/21 [History] predniSONE [Prednisone] 60 mg PO DAILY 7 Days #21 tablet 02/23/21 [Rx] Past Medical History HEENT History: Reports: Other (See Below) Other HEENT History: uses reading glasses, has upper partial removable denture Cardiovascular History: Reports: Hypertension Other Cardiovascular History: has been off Lisinopril for 3 weeks Respiratory History: Reports: None Gastrointestinal History: Reports: None Genitourinary History: Reports: Renal Calculus Musculoskeletal History: Reports: Back Pain, Chronic, Fracture Other Musculoskeletal History: hx of fx back Neurological History: Reports: Other (See Below) Other Neuro History: hx of motion sickness Psychiatric History: Reports: ADHD Other Psychiatric History: has taken Adderal in the past Endocrine/Metabolic History: Reports: Obesity/BMI 30+ Hematologic History: Reports: None Immunologic History: Reports: None Oncologic (Cancer) History: Reports: None Dermatologic History: Reports: None - Infectious Disease History Infectious Disease History: Reports: Hepatitis B - Past Surgical History Head Surgeries/Procedures: Reports: None HEENT Surgical History: Reports: Myringotomy w Tube(s) Cardiovascular Surgical History: Reports: None Respiratory Surgical History: Reports: None GI Surgical History: Reports: Hernia, Inguinal Male Surgical History: Reports: None Endocrine Surgical History: Reports: None Neurological Surgical History: Reports: None Musculoskeletal Surgical History: Reports: Other (See Below) Other Musculoskeletal Surgeries/Procedures:: transposition of left ulnar nerve Oncologic Surgical History: Reports: None Dermatological Surgical History: Reports: None Social & Family History - Family History Family Medical History: No Pertinent Family History - Caffeine Use Caffeine Use: Reports: None - Recreational Drug Use Recreational Drug Use: No ED ROS GENERAL - Review of Systems Review Of Systems: Comprehensive ROS is negative, except as noted in HPI. ED EXAM,LOWER BACK PAIN/INJURY - Physical Exam Exam: See Below (See dictation) Course - Vital Signs Last Recorded V/S: Last Vital Signs Temp 96.5 F L 02/23/21 14:21 Pulse 95 02/23/21 14:21 Resp 18 02/23/21 14:21 BP 122/67 02/23/21 14:21 Pulse Ox 97 02/23/21 14:21 - Orders/Labs/Meds Meds: Medications Discontinued Medications Generic Name Dose Route Start Last Admin Trade Name Alfreda PRN Reason Stop Dose Admin Ketorolac Tromethamine 60 mg 02/23/21 14:35 02/23/21 14:41 Ketorolac 60 Mg/2 Ml Sdv IM 02/23/21 14:36 60 mg ONETIME ONE Administration Orphenadrine Citrate 60 mg 02/23/21 14:35 02/23/21 14:42 Orphenadrine 60 Mg/2 Ml Inj IM 02/23/21 14:36 60 mg ONETIME ONE Administration Departure - Departure Time of Disposition: 14:48 Disposition: Home, Self-Care 01 Clinical Impression: Encounter for pain management Chronic back pain Qualifiers: Back pain location: low back pain Back pain laterality: bilateral Sciatica presence: without sciatica Qualified Code(s): M54.50 - Low back pain, unspecified - Discharge Information Prescriptions: Acetaminophen/oxyCODONE [Percocet 325-5 MG] 1 each PO Q4HR PRN #12 tab PRN Reason: Pain predniSONE [Prednisone] 60 mg PO DAILY 7 Days #21 tablet Instructions: Chronic Back Pain, [id number] Referrals: PCP,None [Primary Care Provider] - Forms: ED Department Discharge Additional Instructions: The following information is given to patients seen in the emergency department who are being discharged to home. This information is to outline your options for follow-up care. We provide all patients seen in our emergency department with a follow-up referral. The need for follow-up, as well as the timing and circumstances, are variable depending upon the specifics of your emergency department visit. If you don't have a primary care physician on staff, we will provide you with a referral. We always advise you to contact your personal physician following an emergency department visit to inform them of the circumstance of the visit and for follow-up with them and/or the need for any referrals to a consulting specialist. The emergency department will also refer you to a specialist when appropriate. This referral assures that you have the opportunity for follow-up care with a specialist. All of these measure are taken in an effort to provide you with optimal care, which includes your follow-up. Under all circumstances we always encourage you to contact your private physician who remains a resource for coordinating your care. When calling for follow-up care, please make the office aware that this follow-up is from your r ecent emergency room visit. If for any reason you are refused follow-up, please contact the [facility] Emergency Department at and asked to speak to the emergency department charge nurse. [facility] [address] [place] [id number] [facility] [address] [place] [address] Thank you for choosing the [facility] emergency department in [place] for your medical needs today. It was a pleasure caring for you. Today you were seen in the emergency department for pain management Your prescription was electronically sent to: [facility] 1. You were evaluated today on an emergent basis. It is important that you establish care with a primary care provider who can refill your narcotic pain medication and help you with your chronic health needs. It will also be important you have someone to follow-up with once you have your procedure done in [place]. Above are listed phone numbers you can call, please set up an appointment. We will not further refill your narcotics through the emergency room. 2. You can alternate Tylenol and ibuprofen as needed for pain and fever management. Please take the steroid and Percocet as directed. 3. We encourage you to follow up for re-evaluation and further care/management. 4. If your symptoms should worsen, new symptoms develop or any of the signs and symptoms we discussed should arise please return to the emergency room or call 911 (if needed). Sepsis Event Note (ED) - Evaluation Sepsis Screening Result: No Definite Risk - Focused Exam Vital Signs: Vital Signs Temp Pulse Resp BP Pulse Ox 02/23/21 14:21 96.5 F L 95 18 122/67 97
== END 2021-02-23 15:16 | disposition home or self-care (01) ==
LOC: MW.ED 14:16
DX: G89.29 Other chronic pain (principal); M54.50 Low back pain, unspecified; I10 Essential (primary) hypertension; E66.9 Obesity, unspecified; Z68.42 Body mass index [BMI] 45.0-49.9, adult; Z79.899 Other long term (current) drug therapy
CPT/HCPCS: 96372; 99283; J1885; J2360

== ENCOUNTER 2021-03-04 18:43 | Emergency (ER) | payer BC ==
[2021-03-04] MEDS ORDERED: Ketorolac 15 MG/ML SDV IM STA (20:22)
[2021-03-04] MEDS ORDERED: Dexamethasone 10 MG/ML SDV IM STA (20:36)
[2021-03-04] MEDS ORDERED: Orphenadrine 60 MG/2 ML Inj IM ONE (20:36)
[2021-03-04] MEDS ORDERED: Lidocaine 5% 700 MG Patch TRDERM ONE (20:37)
[2021-03-04] MEDS ORDERED: Ketorolac 60 MG/2 ML SDV ONE (20:50)
--- NOTE | 2021-03-04 20:52 | EDM.PDOC ---
ED HPI GENERAL MEDICAL PROBLEM - General Chief Complaint: Back Pain or Injury Stated Complaint: BACK PAIN Time Seen by Provider: 03/04/21 20:05 - History of Present Illness INITIAL COMMENTS - FREE TEXT/NARRATIVE: HISTORY AND PHYSICAL: History of present illness: This is a 55-year-old gentleman with a history significant for chronic lower back pain who presents ER today secondary to an acute exacerbation of his back pain. Patient reports that he has been battling his chronic pain for many decades. Patient reports that he is scheduled for a stimulator in the next couple month. Patient reports that once every couple weeks he has severe pain that is unrelieved with his usual regimen. Patient reports in the past he is, and received 3 shots and a prescription for steroids with significant improvement in his discomfort. Patient is requesting that I give him the same medication that he received approxi-1 to 2 months ago. Patient denies any recent fevers, shakes, chills, nausea, vomiting, diarrhea, dysuria, frequency, urgency, chest pain, shortness of breath. Patient has any weakness of his upper or lower extremities. Patient has any paresthesias to his perineal region. Patient has any paresthesias to his lower extremities. Patient has any loss of bowel or bladder function. Patient reports normal urinary and stool output. Patient denies any recent new trauma or injury. Review of systems: As per history of present illness and below otherwise all systems reviewed and negative. Past medical history: As per history of present illness and as reviewed below otherwise noncontributory. Surgical history: As per history of present illness and as reviewed below otherwise noncontributory. Social history: No reported history of drug abuse. Family history: As per history of present illness and as reviewed below otherwise noncontributory. Physical exam: This patient was seen and evaluated during the 2019 SARS-CoV-2 novel coronavirus pandemic period. Community viral transmission is ongoing at time of this encounter and the emergency department is operating under pandemic response procedures. Constitutional: Patient is oriented to person, place, and time. Appears well- developed and well-nourished. No distress. HEENT: Moist mucous membranes Head: Normocephalic and atraumatic Eyes: Right eye exhibits no discharge. Left eye exhibits no discharge. No scleral icterus Neck: Normal range of motion. No tracheal deviation present. Cardiovascular: Normal rate and regular rhythm. Pulmonary: Effort normal, no respiratory distress. Abdominal: No distention Musculoskeletal: Normal range of motion Neurologic: Alert and oriented to person, place and time. Skin: [place], warm and dry. Psychiatric: Normal mood and affect. Behavior is normal. Judgment and thought content normal. Nursing note and vital signs have been reviewed Patient was reproducible tenderness to palpation to his right upper thorax patient was no step-off. Patient is no rash noted. Patient with no evidence of injury or trauma. Patient is neurologically intact. Patient is able to ambulate in the ED with stable gait. Patient has no numbness or paresthesias to palpation. Diagnostics: [] Therapeutics: Toradol, Norflex, Decadron, Lidoderm patch Assessment and plan: 55-year-old gentleman who presents ER today with an acute exacerbation of his chronic back pain. Patient appears to be scheduled for a stimulator in the next 1 to 2 months. Patient reports he has intermittent episodes of severe pain that is unresolved with his home regimen. Patient had received Toradol, Norflex, Decadron in the past with significant improvement in his symptoms. I will go ahead and reorder this for the patient and I will write him a prescription for Percocet, Flexeril, ibuprofen and have him follow-up with his doctor in the next week. Patient has no evidence of cord injury. Based on careful history and physical examination I feel this patient's back pain is most likely from simple musculoskeletal cause and there is low clinical suspicion for more serious pathology such as spinal infectious process, epidural hematoma or malignant process. I also feel that the pain is unlikely to represent pathology outside of the musculoskeletal system and has a low likelihood of being a presentation of aortic disease, GI cause or retroperitoneal hemorrhage. The patient's evaluation does not reveal any red flags given her normal neurologic examination believe they are safe for outpatient follow-up with no further intervention at this time. No history suggestive of trauma or anticoagulation use. Reassessment at the time of disposition demonstrates that the patient is in no acute distress. The patient has remained stable throughout the entire ED visit and is without objective evidence for acute process requiring urgent intervention or hospitalization. The patient is stable for discharge, counseling is provided as documented above, discussed symptomatic treatment and specific conditions for return. I have spoken with the patient/caregiver and discussed todays findings, in addition to providing specific details for the plan of care. Questions are answered and there is agreement with the plan. Definitive disposition and diagnosis as appropriate pending reevaluation and review of above. back Pain Score (Numeric/FACES): 6 - Related Data Allergies Allergy/AdvReac Type Severity Reaction Status Date / Time buprenorphine [From Suboxone] Allergy Swelling Verified 03/04/21 19:51 naloxone [From Suboxone] Allergy Swelling Verified 03/04/21 19:51 Home Meds: Home Meds Lisinopril/Hydrochlorothiazide [Lisinopril-Hctz 20-25 mg Tab] 1 tab PO QAM 05/30/18 [History] Amphetamine/Dextroamphetamine [Adderall] 1 tab PO ASDIRECTED 02/23/21 [History] amLODIPine [Norvasc] 1 tab PO ASDIRECTED 02/23/21 [History] atorvaSTATin [Lipitor] 10 mg PO 03/04/21 [History] Past Medical History HEENT History: Reports: Other (See Below) Other HEENT History: uses reading glasses, has upper partial removable denture Cardiovascular History: Reports: Hypertension Other Cardiovascular History: has been off Lisinopril for 3 weeks Respiratory History: Reports: None Gastrointestinal History: Reports: None Genitourinary History: Reports: Renal Calculus Musculoskeletal History: Reports: Back Pain, Chronic, Fracture Other Musculoskeletal History: hx of fx back Neurological History: Reports: Other (See Below) Other Neuro History: hx of motion sickness Psychiatric History: Reports: ADHD Other Psychiatric History: has taken Adderal in the past Endocrine/Metabolic History: Reports: Obesity/BMI 30+ Hematologic History: Reports: None Immunologic History: Reports: None Oncologic (Cancer) History: Reports: None Dermatologic History: Reports: None - Infectious Disease History Infectious Disease History: Reports: Hepatitis A, Hepatitis B, Hepatitis C Other Infectious Disease History: pt states "i think I had them all but i don't transmit them" - Past Surgical History Head Surgeries/Procedures: Reports: None HEENT Surgical History: Reports: Myringotomy w Tube(s) Cardiovascular Surgical History: Reports: None Respiratory Surgical History: Reports: None GI Surgical History: Reports: Hernia, Inguinal Male Surgical History: Reports: None Endocrine Surgical History: Reports: None Neurological Surgical History: Reports: None Musculoskeletal Surgical History: Reports: Other (See Below) Other Musculoskeletal Surgeries/Procedures:: transposition of left ulnar nerve Oncologic Surgical History: Reports: None Dermatological Surgical History: Reports: None Social & Family History - Family History Family Medical History: No Pertinent Family History - Tobacco Use Tobacco Use Status *Q: Never Tobacco User - Caffeine Use Caffeine Use: Reports: Energy Drinks - Recreational Drug Use Recreational Drug Use: No ED ROS GENERAL - Review of Systems Review Of Systems: See Below ED EXAM, GENERAL - Physical Exam Exam: See Below Course - Vital Signs Last Recorded V/S: Last Vital Signs Temp 97.4 F 03/04/21 19:40 Pulse 100 03/04/21 19:40 Resp 18 03/04/21 19:40 BP 126/83 03/04/21 19:40 Pulse Ox 96 03/04/21 19:40 - Orders/Labs/Meds Meds: Medications Discontinued Medications Generic Name Dose Route Start Last Admin Trade Name Alfreda PRN Reason Stop Dose Admin Dexamethasone 10 mg 03/04/21 20:36 Dexamethasone 10 Mg/Ml Sdv IM 03/04/21 20:37 ONETIME STA Ketorolac Tromethamine 60 mg 03/04/21 20:22 Ketorolac 15 Mg/Ml Sdv IM 03/04/21 20:23 Q6H STA Lidocaine 700 mg 03/04/21 20:37 Lidocaine 5% 700 Mg Patch TRDERM 03/04/21 20:38 ONETIME ONE Orphenadrine Citrate 60 mg 03/04/21 20:36 Orphenadrine 60 Mg/2 Ml Inj IM 03/04/21 20:37 ONETIME ONE Departure - Departure Time of Disposition: 20:52 Disposition: Home, Self-Care 01 Condition: Good Clinical Impression: Encounter for pain management Chronic back pain Qualifiers: Back pain location: low back pain Back pain laterality: bilateral Sciatica presence: without sciatica Qualified Code(s): M54.50 - Low back pain, unspecified - Discharge Information Instructions: Managing Chronic Back Pain Additional Instructions: You were seen and evaluated in ER today secondary to an acute exacerbation of your chronic back pain. A prescription has been sent to the [facility] system for Percocet, ibuprofen, Flexeril, and prednisone. Please take the medications as directed. Please make an appointment to follow-up with your doctor next week for reevaluation and long-term management of your pain as this would be the most appropriate way to approach your chronic back pain. Please return the ER if develop any new or concerning symptoms. The following information is given to patients seen in the emergency department who are being discharged to home. This information is to outline your options for follow-up care. We provide all patients seen in our emergency department with a follow-up referral. The need for follow-up, as well as the timing and circumstances, are variable depending upon the specifics of your emergency department visit. If you don't have a primary care physician on staff, we will provide you with a referral. We always advise you to contact your personal physician following an emergency department visit to inform them of the circumstance of the visit and for follow-up with them and/or the need for any referrals to a consulting specialist. The emergency department will also refer you to a specialist when appropriate. This referral assures that you have the opportunity for follow-up care with a specialist. All of these measure are taken in an effort to provide you with optimal care, which includes your follow-up. Under all circumstances we always encourage you to contact your private physician who remains a resource for coordinating your care. When calling for follow-up care, please make the office aware that this follow-up is from your recent emergency room visit. If for any reason you are refused follow-up, please contact the [facility] Emergency Department at and asked to speak to the emergency department charge nurse. [facility] - Primary [facility] [address] [place] [id number] [facility] [address] [place] [id number] Sepsis Event Note (ED) - Evaluation Sepsis Screening Result: No Definite Risk - Focused Exam Vital Signs: Vital Signs Temp Pulse Resp BP Pulse Ox 03/04/21 19:40 97.4 F 100 18 126/83 96
== END 2021-03-04 21:17 | disposition home or self-care (01) ==
LOC: MW.ED 18:43
DX: G89.29 Other chronic pain (principal); M54.50 Low back pain, unspecified; E66.9 Obesity, unspecified; Z68.42 Body mass index [BMI] 45.0-49.9, adult; Z88.5 Allergy status to narcotic agent; Z79.899 Other long term (current) drug therapy
CPT/HCPCS: 96372; 99283; A9270; J1100; J1885; J2360

== ENCOUNTER 2021-04-09 14:45 | Emergency (ER) | payer BC ==
[2021-04-09] MEDS ORDERED: Dexamethasone 10 MG/ML SDV IM STA (14:56)
[2021-04-09] MEDS ORDERED: Ketorolac 30 MG/ML SDV IM ONE (14:56)
[2021-04-09] MEDS ORDERED: Acetaminophen/oxyCODONE 325-5 MG Tab PO ONE (14:56)
[2021-04-09] MEDS ORDERED: Orphenadrine 60 MG/2 ML Inj IM ONE (14:56)
== END 2021-04-09 15:45 | disposition home or self-care (01) ==
LOC: MW.ED 14:45
DX: G89.29 Other chronic pain (principal); M54.50 Low back pain, unspecified; M54.6 Pain in thoracic spine; I10 Essential (primary) hypertension; E66.9 Obesity, unspecified; Z68.41 Body mass index [BMI] 40.0-44.9, adult; Z88.5 Allergy status to narcotic agent; Z88.8 Allergy status to other drugs, medicaments and biological substances; Z79.899 Other long term (current) drug therapy
CPT/HCPCS: 96372; 99283; A9270; J1100; J1885; J2360

== ENCOUNTER 2021-04-18 12:41 | Emergency (ER) | payer BC ==
[2021-04-18] MEDS ORDERED: Morphine 4 MG/ML VIAL IM ONE (14:42)
== END 2021-04-18 14:52 | disposition home or self-care (01) ==
LOC: MW.ED 12:41
DX: G89.29 Other chronic pain (principal); M54.6 Pain in thoracic spine; E78.00 Pure hypercholesterolemia, unspecified; I10 Essential (primary) hypertension; E66.9 Obesity, unspecified; Z68.41 Body mass index [BMI] 40.0-44.9, adult; Z88.5 Allergy status to narcotic agent; Z88.8 Allergy status to other drugs, medicaments and biological substances; Z79.899 Other long term (current) drug therapy
CPT/HCPCS: 96372; 99283; J2270; 99282

== ENCOUNTER 2021-04-21 16:29 | Emergency (ER) | payer BC ==
[2021-04-21] MEDS ORDERED: Ketorolac 60 MG/2 ML SDV IM ONE (17:14)
[2021-04-21] MEDS ORDERED: Orphenadrine 60 MG/2 ML Inj IM ONE (17:14)
[2021-04-21] MEDS ORDERED: traMADol 50 MG Tab PO ONE (17:14)
[2021-04-21 19:02] LABS: CARBON DIOXIDE,CO2 25.4 mmol/L (21.0-32.0); POTASSIUM,K 3.8 mmol/L (3.5-5.1)
[2021-04-21] MEDS ORDERED: Iopamidol 755 MG/ML 500 ML Multipack Bottle IVPUSH STA (19:53)
== END 2021-04-21 21:06 | disposition home or self-care (01) ==
LOC: MW.ED 16:29
DX: G89.29 Other chronic pain (principal); M54.6 Pain in thoracic spine; E78.00 Pure hypercholesterolemia, unspecified; I10 Essential (primary) hypertension; E66.9 Obesity, unspecified; Z68.41 Body mass index [BMI] 40.0-44.9, adult; Z88.5 Allergy status to narcotic agent; Z79.899 Other long term (current) drug therapy
CPT/HCPCS: 36415; 74177; 80053; 81003; 82550; 85025; 96372; 99284; A9270; J1885; J2360; Q9967; 99283

== ENCOUNTER 2021-06-16 19:46 | Emergency (ER) | payer BC, OTHER ==
[2021-06-16] MEDS ORDERED: Ketorolac 60 MG/2 ML SDV IM ONE (20:32)
[2021-06-16] MEDS ORDERED: Orphenadrine 60 MG/2 ML Inj IM ONE (20:32)
== END 2021-06-16 21:02 | disposition home or self-care (01) ==
LOC: MW.ED 19:46
DX: G89.29 Other chronic pain (principal); M54.50 Low back pain, unspecified; E66.9 Obesity, unspecified; Z76.5 Malingerer [conscious simulation]; Z88.5 Allergy status to narcotic agent; Z79.899 Other long term (current) drug therapy; Z68.38 Body mass index [BMI] 38.0-38.9, adult
CPT/HCPCS: 96372; 99283; J1885; J2360

== ENCOUNTER 2023-07-19 14:46 | Emergency (ER) | payer OTHER, BC ==
[2023-07-19 15:54] LABS: BASOPHILS ABSOLUTE AUTO 0.04 K/uL (0.00-0.20); BASOPHILS PERCENT AUTO 0.6 % (0.0-1.0); EOSINOPHILS PERCENT AUTO 1.4 % (0.0-6.0); HEMATOCRIT 41.5 % (42.0-52.0); HEMOGLOBIN 14.1 g/dL (14.0-18.0); IMMATURE GRAN ABSOLUTE AUTO 0.08 K/uL (0.00-0.05); IMMATURE GRAN PERCENT AUTO 1.1 % (0.0-0.4); LYMPHOCYTES ABSOLUTE AUTO 1.55 K/uL (1.00-4.80); LYMPHOCYTES PERCENT AUTO 21.6 % (24.0-44.0); MEAN CORPUSCULAR HEMOGLOBIN 31.1 pg (28.0-32.0); MEAN CORPUSCULAR VOLUME 91.4 fL (83.0-99.0); MEAN PLATELET VOLUME 8.4 fL (9.4-12.4); MONOCYTES ABSOLUTE AUTO 0.52 K/uL (0.00-0.80); MONOCYTES PERCENT AUTO 7.2 % (0.0-8.0); NEUTROPHILS ABSOLUTE AUTO 4.89 K/uL (1.80-7.70); NEUTROPHILS PERCENT AUTO 68.1 % (41.0-71.0); PLATELET COUNT,PLT 280 K/uL (150-400); RED BLOOD CELL COUNT 4.54 M/uL (4.52-5.90); WHITE BLOOD CELL COUNT,WBC 7.18 K/uL (3.9-11.3)
[2023-07-19 16:04] LABS: INR 1.04 (0.86-1.11); PTT,PARTIAL THROMBOPLSTIN TIME 30.8 SEC (23.9-30.7)
[2023-07-19 16:07] LABS: A/G RATIO 0.9 (0.9-1.6); ALBUMIN 3.4 g/dL (3.4-5.0); BILIRUBIN TOTAL 0.3 mg/dL (0.2-1.0); CALCIUM 8.8 mg/dL (8.5-10.1); CARBON DIOXIDE,CO2 28.6 mmol/L (21.0-32.0); CREATININE 1.2 mg/dL (0.8-1.3); EST CRCL DRUG DOSING (CG) 76.76 mL/min; POTASSIUM,K 3.6 mmol/L (3.5-5.1)
[2023-07-19] MEDS: Sodium Chloride 0.9% 10 ML Syringe FLUSH PRN (16:15)
[2023-07-19] MEDS: Sodium Chloride 0.9% 2.5 ML Syringe FLUSH PRN (16:16)
[2023-07-19] MEDS: Sodium Chloride 0.9% 20 ML SDV IV PRN (16:16)
[2023-07-19] MEDS: Iopamidol 755 MG/ML 500 ML Multipack Bottle IVPUSH STA (16:34)
[2023-07-19] MEDS: diphenhydrAMINE 50 MG/ML SDV IVPUSH STA (16:49)
[2023-07-19] MEDS: Metoclopramide 10 MG/2 ML SDV IVPUSH STA (16:49)
== END 2023-07-19 17:56 | disposition left against medical advice (07) ==
LOC: MW.ED 14:46
DX: I72.8 Aneurysm of other specified arteries (principal); I10 Essential (primary) hypertension; Z75.8 Other problems related to medical facilities and other health care; Z88.8 Allergy status to other drugs, medicaments and biological substances; Z79.899 Other long term (current) drug therapy; V49.49XA Driver injured in collision with other motor vehicles in traffic accident, initial encounter; Y93.89 Activity, other specified
CPT/HCPCS: 36415; 70450; 70496; 70498; 80053; 82947; 85025; 85610; 85730; 93005; 96374; 96375; 99284; J1200; J2765; J3490; Q9967; 93010

== ENCOUNTER 2024-07-27 04:39 | Emergency (ER) | payer SELFPAY ==
[2024-07-27 05:00] LABS: BASOPHILS ABSOLUTE AUTO 0.03 K/uL (0.00-0.20); BASOPHILS PERCENT AUTO 0.3 % (0.0-1.0); EOSINOPHILS ABSOLUTE AUTO 0.07 K/uL (0.00-0.45); EOSINOPHILS PERCENT AUTO 0.6 % (0.0-6.0); HEMATOCRIT 45.2 % (42.0-52.0); IMMATURE GRAN ABSOLUTE AUTO 0.04 K/uL (0.00-0.05); IMMATURE GRAN PERCENT AUTO 0.4 % (0.0-0.4); LYMPHOCYTES ABSOLUTE AUTO 1.47 K/uL (1.00-4.80); LYMPHOCYTES PERCENT AUTO 13.1 % (24.0-44.0); MEAN CORPUSCULAR HEMOGLOBIN 29.1 pg (28.0-32.0); MEAN CORPUSCULAR HGB CONC 33.2 g/dL (32.0-36.0); MEAN CORPUSCULAR VOLUME 87.6 fL (83.0-99.0); MEAN PLATELET VOLUME 8.8 fL (9.4-12.4); MONOCYTES ABSOLUTE AUTO 1.27 K/uL (0.00-0.80); MONOCYTES PERCENT AUTO 11.3 % (0.0-8.0); NEUTROPHILS ABSOLUTE AUTO 8.35 K/uL (1.80-7.70); NEUTROPHILS PERCENT AUTO 74.3 % (41.0-71.0); PLATELET COUNT,PLT 288 K/uL (150-400); RED BLOOD CELL COUNT 5.16 M/uL (4.52-5.90); WHITE BLOOD CELL COUNT,WBC 11.23 K/uL (3.9-11.3)
[2024-07-27] MEDS: droPERidol 2.5 MG/ML SDV IVPUSH ONE (05:03)
[2024-07-27] MEDS: Sodium Chloride 0.9% 1,000 ML IV SCH (05:03)
[2024-07-27] MEDS: diphenhydrAMINE 50 MG/ML SDV IVPUSH ONE (05:04)
[2024-07-27] MEDS: fentaNYL 50 MCG/ML SDV IVPUSH ONE (05:05)
[2024-07-27 05:10] LABS: A/G RATIO 0.9 (0.9-1.6); ALANINE AMINOTRANSFERASE,ALT 26 IU/L (14-63); ALBUMIN 3.5 g/dL (3.4-5.0); ALKALINE PHOSPHATASE 99 U/L (46-116); ASPARTATE AMNIOTRANSFERASE,AST 18 IU/L (15-37); BILIRUBIN TOTAL 0.6 mg/dL (0.2-1.0); BLOOD UREA NITROGEN,BUN 20 mg/dL (7.0-18.0); CALCIUM 9.1 mg/dL (8.5-10.1); CARBON DIOXIDE,CO2 29.7 mmol/L (21.0-32.0); CHLORIDE,CL 102 mmol/L (98-107); GLUCOSE RANDOM 111 mg/dL (74-106); POTASSIUM,K 4.2 mmol/L (3.5-5.1); PROTEIN TOTAL,TP 7.2 g/dL (6.4-8.2); SODIUM,NA 139 mmol/L (136-148)
[2024-07-27 05:16] LABS: ESTIMATED GFR 87 mL/min (>60)
[2024-07-27] MEDS: Iopamidol 755 MG/ML 500 ML Multipack Bottle IVPUSH ONE ×2 (05:58→06:34)
[2024-07-27] MEDS: Orphenadrine 60 MG/2 ML Inj IM ONE (06:15)
== END 2024-07-27 08:06 | disposition left against medical advice (07) ==
LOC: MW.ED 04:39
DX: R51.9 Headache, unspecified (principal); I10 Essential (primary) hypertension; E78.00 Pure hypercholesterolemia, unspecified; E66.9 Obesity, unspecified; Z79.899 Other long term (current) drug therapy; Z88.8 Allergy status to other drugs, medicaments and biological substances
CPT/HCPCS: 36415; 70496; 80053; 85025; 96361; 96372; 96374; 96375; 99284; J1200; J1790; J2360; J3010; J7030; Q9967; 99283

== ENCOUNTER 2024-07-27 15:08 | Emergency (ER) | payer SELFPAY ==
[2024-07-27 15:44] LABS: BASOPHILS ABSOLUTE AUTO 0.02 K/uL (0.00-0.20); BASOPHILS PERCENT AUTO 0.2 % (0.0-1.0); EOSINOPHILS ABSOLUTE AUTO 0.02 K/uL (0.00-0.45); EOSINOPHILS PERCENT AUTO 0.2 % (0.0-6.0); HEMATOCRIT 44.7 % (42.0-52.0); HEMOGLOBIN 15.1 g/dL (14.0-18.0); IMMATURE GRAN ABSOLUTE AUTO 0.04 K/uL (0.00-0.05); IMMATURE GRAN PERCENT AUTO 0.3 % (0.0-0.4); LYMPHOCYTES ABSOLUTE AUTO 1.33 K/uL (1.00-4.80); LYMPHOCYTES PERCENT AUTO 10.9 % (24.0-44.0); MEAN CORPUSCULAR HEMOGLOBIN 29.3 pg (28.0-32.0); MEAN CORPUSCULAR HGB CONC 33.8 g/dL (32.0-36.0); MEAN CORPUSCULAR VOLUME 86.8 fL (83.0-99.0); MEAN PLATELET VOLUME 8.6 fL (9.4-12.4); MONOCYTES ABSOLUTE AUTO 1.14 K/uL (0.00-0.80); MONOCYTES PERCENT AUTO 9.3 % (0.0-8.0); NEUTROPHILS ABSOLUTE AUTO 9.66 K/uL (1.80-7.70); NEUTROPHILS PERCENT AUTO 79.1 % (41.0-71.0); PLATELET COUNT,PLT 311 K/uL (150-400); RED BLOOD CELL COUNT 5.15 M/uL (4.52-5.90); WHITE BLOOD CELL COUNT,WBC 12.21 K/uL (3.9-11.3)
[2024-07-27] MEDS: HYDROmorphone 0.5 MG/0.5 ML Syringe IVPUSH ONE (15:55)
[2024-07-27 16:03] LABS: CALCIUM 9.8 mg/dL (8.5-10.1); CARBON DIOXIDE,CO2 26.2 mmol/L (21.0-32.0)
== END 2024-07-27 17:08 ==
LOC: MW.ED 15:08
DX: R51.9 Headache, unspecified (principal); I72.9 Aneurysm of unspecified site; D72.829 Elevated white blood cell count, unspecified; I10 Essential (primary) hypertension; E78.00 Pure hypercholesterolemia, unspecified; E66.9 Obesity, unspecified; Z79.899 Other long term (current) drug therapy; Z88.8 Allergy status to other drugs, medicaments and biological substances
CPT/HCPCS: 36415; 80048; 85025; 96374; 99284; 99285-25

== ENCOUNTER 2024-08-15 14:50 | Emergency (ER) | payer SELFPAY ==
[2024-08-15 16:16] LABS: BASOPHILS ABSOLUTE AUTO 0.07 K/uL (0.00-0.20); BASOPHILS PERCENT AUTO 0.7 % (0.0-1.0); EOSINOPHILS ABSOLUTE AUTO 0.14 K/uL (0.00-0.45); EOSINOPHILS PERCENT AUTO 1.4 % (0.0-6.0); HEMATOCRIT 42.7 % (42.0-52.0); HEMOGLOBIN 13.9 g/dL (14.0-18.0); IMMATURE GRAN ABSOLUTE AUTO 0.04 K/uL (0.00-0.05); IMMATURE GRAN PERCENT AUTO 0.4 % (0.0-0.4); LYMPHOCYTES ABSOLUTE AUTO 1.57 K/uL (1.00-4.80); LYMPHOCYTES PERCENT AUTO 16.1 % (24.0-44.0); MEAN CORPUSCULAR HEMOGLOBIN 29.8 pg (28.0-32.0); MEAN CORPUSCULAR HGB CONC 32.6 g/dL (32.0-36.0); MEAN CORPUSCULAR VOLUME 91.4 fL (83.0-99.0); MEAN PLATELET VOLUME 8.5 fL (9.4-12.4); MONOCYTES ABSOLUTE AUTO 1.13 K/uL (0.00-0.80); MONOCYTES PERCENT AUTO 11.6 % (0.0-8.0); NEUTROPHILS ABSOLUTE AUTO 6.78 K/uL (1.80-7.70); NEUTROPHILS PERCENT AUTO 69.8 % (41.0-71.0); PLATELET COUNT,PLT 412 K/uL (150-400); RED BLOOD CELL COUNT 4.67 M/uL (4.52-5.90); WHITE BLOOD CELL COUNT,WBC 9.73 K/uL (3.9-11.3)
[2024-08-15 16:40] LABS: ALANINE AMINOTRANSFERASE,ALT 28 IU/L (14-63); ALBUMIN 3.7 g/dL (3.4-5.0); ALKALINE PHOSPHATASE 77 U/L (46-116); ASPARTATE AMNIOTRANSFERASE,AST 23 IU/L (15-37); BILIRUBIN TOTAL 0.5 mg/dL (0.2-1.0); BLOOD UREA NITROGEN,BUN 23 mg/dL (7.0-18.0); C-REACTIVE PROTEIN 2.05 mg/dL (<0.3); CALCIUM 9.6 mg/dL (8.5-10.1); CARBON DIOXIDE,CO2 28.1 mmol/L (21.0-32.0); CHLORIDE,CL 100 mmol/L (98-107); CREATININE 1.4 mg/dL (0.8-1.3); GLUCOSE RANDOM 109 mg/dL (74-106); POTASSIUM,K 3.4 mmol/L (3.5-5.1); PROTEIN TOTAL,TP 7.4 g/dL (6.4-8.2); SODIUM,NA 139 mmol/L (136-148)
[2024-08-15 16:44] LABS: ESTIMATED GFR 58 mL/min (>60)
== END 2024-08-15 17:38 | disposition left against medical advice (07) ==
LOC: MW.ED 14:50
DX: I82.411 Acute embolism and thrombosis of right femoral vein (principal); I10 Essential (primary) hypertension; E78.00 Pure hypercholesterolemia, unspecified; E66.9 Obesity, unspecified; Z79.899 Other long term (current) drug therapy; Z88.8 Allergy status to other drugs, medicaments and biological substances
CPT/HCPCS: 36415; 80053; 83605; 85025; 85652; 86140; 93926; 93971-26-RT; 93971-RT; 99283; 99284

== ENCOUNTER 2024-08-15 19:20 | Emergency (ER) | payer SELFPAY ==
[2024-08-15] MEDS: Heparin Sodium/0.45% NaCl 25,000 UNITS/250 ML BAG IV SCH (21:26)
[2024-08-15] MEDS: Heparin Sodium 5,000 Units/ML Vial IVPUSH ONE (21:59)
[2024-08-15] MEDS: Heparin Sodium 1,000 Units/ML MDV IV ONE (22:00)
[2024-08-15] MEDS: Heparin Sodium 5,000 Units/ML Vial ONE (22:00)
== END 2024-08-15 22:48 ==
LOC: MW.ED 19:20
DX: I82.401 Acute embolism and thrombosis of unspecified deep veins of right lower extremity (principal); I10 Essential (primary) hypertension; E11.9 Type 2 diabetes mellitus without complications; E78.00 Pure hypercholesterolemia, unspecified; Z88.8 Allergy status to other drugs, medicaments and biological substances; Z79.899 Other long term (current) drug therapy; Z98.84 Bariatric surgery status; Z95.828 Presence of other vascular implants and grafts
CPT/HCPCS: 36415; 85730; 96365; 99284; J1644